=== PATIENT | female | born 1985 | race American Indian/Alaskan Native ===

== ENCOUNTER 2017-11-26 22:16 | Inpatient (IN) | payer OTHER, MEDICAID ==
[2017-11-26] MEDS ORDERED: LACTATED RINGERS 500 ML IV ONE (22:57)
--- NOTE | 2017-11-26 23:36 | History and Physical Report ---
History of Present Illness Date of examination: 11/26/17 (as per triage nurse) Date of admission: 11/26/17 Chief complaint: leaking fluid History of present illness: Pt presents c/o leakage of fluid that has been constant all evening. Fluid has been clear and no odor. No fevers and no chills. Pt as evaluated in triage and noted to have +nitrazine and appears to be grossly SROM by diamond powder technician. Pt admitted but was made aware that the NICU is on diversion at this time that should lift by the am but if it does not and she needs delivery or delivers the baby would be transferred to another hospital for care while she would remain in this hospital for care. Pt expresssed understanding. Pt also advised of steroids, NICU consult, MgSo4 that is to follow. I expressed to pt that if she shows progression of labor, s/sx of chorio, or distress, she will need delivery.Pt and FOB expressed understanding and several questions were addressed and answered. Pt does not c/o increasing pressure at this time so repeat vaginal exam not done to decrease risk of infection. Sono shows OLAYINKA of 1.9cm, CL 3.2cm, and EFW 741g. EDC Confirmation: 03/10/2018 Gestational Age: 8 1/7 weeks Past History : 4 Term Births: 2 Premature Births: 0 Living Children: 2 Para: 2 Mult. Births: 0 Prev : 2 Prev. attempt? none Aborta: 1 Elect. Ab: 1 Spont. Ab: 0 Ectopics: 0 # 1 Delivery date: 12/2006 Delivery type: Anesthesia type: epidural Delivery location: [facility] Infant Sex: Female weight: 7-14 Comments: CPD # 2 Delivery date: 2011 Delivery type: EAB # 3 Delivery date: 03/18/2013 Weeks Gestation: 38 4/7 Delivery type: Anesthesia type: epidural Delivery location: [facility] Infant Sex: female Comments: none Past Medical History: Reviewed history from 04/11/2010 and no changes required: Negative Past Medical History Past Surgical History: D&C: (2006) (2013) Family History Summary: Reviewed history Last on 08/16/2012 and no changes required:08/08/2017 General Comments - FH: Family History of Diabetes Family History of Hypertension No Family History of Breast Cancer No Family History of Colon Cancer No Family History of Ovarvian Cancer Social History: 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 Risk Factors: Smoked Tobacco Use: Current every day smoker Counseled to quit/cut down: yes Drug use: no Alcohol use: yes Type: liqour; occ Seatbelt use: 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-counselor aide % Dietary Counseling: pn yes Past Medical History Surgery (Non-ob/gyn doctor): D&C: (2006) (2013) Abnormal PAP: positive DAISY Exposure: negative Infertility: negative Uterine Anomaly: negative Uterine Surgery (not C/S): negative Other Gynecologic Problems: negative Social Hx: 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 Genetic History Congenital Heart Defect: Mom: no Dad: no Sarah Disease: Mom: no Dad: no Thalassemia Mom: no Dad: no Neural Tube Defect Mom: no Dad: no Down's Syndrome Mom: no Dad: no Eliseo-Sachs Mom: no Dad: no Sickle Cell Disease/Trait Mom: no Dad: no Hemophilia Mom: no Dad: no Muscular Dystrophy Mom: no Dad: no Cystic Fibrosis Mom: no Dad: no Crawford Chorea Mom: no Dad: no Mental Retardation Mom: no Dad: no Fragile X Mom: no Dad: no Other Genetic/Chromosomal Disorder Mom: no Dad: no Child w/other defect Mom: no Dad: no Enviromental Exposures Xray Exposure: no Medication, drug, or alcohol use since LMP: no Chemical/Other Exposure: no Exposure to Cat Liter: no Hx of Parvovirus (Fifth Disease): no Active Medications (reviewed today): FORMULA 27-1 MG ORAL TABLET ( VIT-FE FUMARATE-FA) 1 po q day as directed DIFLUCAN 150 MG ORAL TABLET (FLUCONAZOLE) 1 po now VALTREX 500 MG ORAL TABLET (VALACYCLOVIR HCL) 1 tab po bid x3days as needed IB 800MG () Current Allergies (reviewed today): No known allergies Past History Past Medical History: no pertinent history Past Surgical History: section (times 2) [employer]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 smear Family/Genetic History: diabetes - Obstetrical History Expected Date of Delivery: 03/10/18 Actual Gestation: 25 Week(s) 2 Day(s) : 3 Para: 2 Number of Living Children: 2 Medications and Allergies Allergies Allergy/AdvReac Type Severity Reaction Status Date / Time No Known Allergies Allergy Verified 03/18/13 12:35 Home Medications Medication Instructions Recorded Confirmed Last Taken Type Docusate Sodium [Colace] 100 mg PO BID PRN #60 capsule 03/18/13 11/26/17 11:00 Rx Ferrous Sulfate [Iron] 1 tab PO DAILY 11/26/17 11/26/17 11/25/17 11:00 History Pnv No.95/Ferrous Fum/Folic AC 1 tab PO DAILY 11/26/17 11/26/17 11/25/17 11:00 History [ Formula Tablet] Review of Systems All systems: negative - Vital Signs Vital signs: Vital Signs Pulse Pulse Ox 93 H 98 11/26/17 22:48 11/26/17 22:48 Temp Pulse Resp BP Pulse Ox 98.2 F 92 H 18 107/55 97 11/26/17 22:49 11/26/17 22:58 11/26/17 22:49 11/26/17 22:49 11/26/17 22:58 Results All other labs normal. Assessment and Plan - Patient Problems (1) 25 weeks gestation of Current Visit: Yes Status: Acute (2) premature rupture of membranes Current Visit: Yes Status: Acute Plan to address problem: -admit -complete sono -MgSo4 -NICU consult -antbx to prolong latency (3) Anemia Current Visit: Yes Status: Acute (4) History of delivery, currently Current Visit: No Status: Acute
[2017-11-26] MEDS ORDERED: TYLENOL PO PRN (23:42)
[2017-11-26] MEDS ORDERED: COLACE PO PRN (23:42)
[2017-11-26] MEDS ORDERED: LACTATED RINGERS 1,000 ML IV SCH (23:45)
[2017-11-26] MEDS ORDERED: MAGNESIUM SULFATE 4GM/100ML 4 GM/100 ML BAG IV ONE (23:59)
[2017-11-27] MEDS ORDERED: CELESTONE SOLUSPAN IM ONE (00:12)
[2017-11-27] MEDS: CELESTONE SOLUSPAN IM SCH (00:25)
[2017-11-27 00:34] LABS: Bilirubin,Urine NEG (Negative); Blood,Urine SM (Negative); Color,Urine Yellow (Yellow); Mucus,Urine 1+ /HPF; Urobilinogen,Urine < 2.0 mg/dL (<2.0)
--- NOTE | 2017-11-27 00:40 | Event Note ---
Date: 11/27/17 Pt is s/p 1st dose of steroids and is awaiting magnesium to start.
--- NOTE | 2017-11-27 00:41 | Ultrasound Report ---
FINAL REPORT PROCEDURE: US OB > = 14 WEEKS FETUS TECHNIQUE: Real-time transabdominal sonography of the uterus, placenta, amniotic fluid, adnexa, and fetus was performed with image documentation. Measurements were obtained to determine age/size. M-mode Doppler was used to document heartbeat. CPT 23125 HISTORY: premature rupture of membranes COMPARISON: No prior studies are available for comparison. FINDINGS: ADDITIONAL GESTATION: None. GENERAL: IUP: Single living intrauterine . Position: Breech Placental position: Posterior and fundal, without previa. Amniotic fluid volume: Normal. MATERNAL: Uterus: Within normal limits. Cervix could not be visualized. FETUS: Heart rate and rhythm: 144 beats per minute anatomic survey: Normal. MEASUREMENTS: BPD: 5.83 centimeters correspond to 23 weeks and 6 days HC: 23.83 centimeters correspond to 25 weeks and 6 days AC: 19.5 centimeters correspond to 24 weeks and 1 day FL: 4.67 centimeters correspond to 25 weeks and 4 days Mean Gestational Age (composite criteria): 24 weeks and 6 days Ratio biometry: Normal. Estimated Weight: 741 grams. Interval growth: Appropriate. Estimated Due Date (earliest scan): 03/12/2018 IMPRESSION: Single intrauterine gestation at 24 weeks and 6 days. Estimated due date: 03/12/2018. Normal survey with appropriate growth.
[2017-11-27] MEDS: MAGNESIUM SULFATE 40GM/1000ML 40 GM/1,000 ML BAG IV SCH ×2 (00:58→20:03)
[2017-11-27 01:06] LABS: Basophils # (Auto) 0.2 K/mm3 (0.0-0.1); Basophils % (Auto) 1.3 % (0.0-1.8); Eosinophils # (Auto) 0.1 K/mm3 (0.0-0.4); Hematocrit 34.1 % (30.3-42.9); Hemoglobin 11.4 gm/dl (10.1-14.3); Lymphocytes # (Auto) 3.4 K/mm3 (1.2-5.4); Lymphocytes % (Auto) 22.1 % (13.4-35.0); Mean Corpuscular HGB Conc 33 % (30-34); Mean Corpuscular Hemoglobin 28 pg (28-32); Mean Corpuscular Volume 84 fl (79-97); Monocytes # (Auto) 1.2 K/mm3 (0.0-0.8); Monocytes % (Auto) 7.9 % (0.0-7.3); Platelet Count 269 K/mm3 (140-440); Red Blood Count 4.06 M/mm3 (3.65-5.03); Red Cell Distribution Width 13.7 % (13.2-15.2)
[2017-11-27] MEDS: ERY-TAB PO SCH ×4 (01:11→19:07)
[2017-11-27] MEDS ORDERED: POLYCILLIN/NS 2 GM/100 ML 2 GM/100 ML BAG IV ONE (01:12)
[2017-11-27 01:46] LABS: Albumin 3.6 g/dL (3.9-5); BUN/Creatinine Ratio 16; Blood Urea Nitrogen 8 mg/dL (7-17); Hemolysis Index 127
[2017-11-27 01:54] LABS: Alanine Aminotransferase 12 units/L (7-56)
[2017-11-27] MEDS: LACTATED RINGERS 1,000 ML IV SCH ×2 (02:47→19:15)
--- NOTE | 2017-11-27 07:31 | Progress Note ---
Assessment and Plan Patient resting without complaints, denies ctx or rectal pressure. Clear odorless fluid noted on pad, no abd tenderness noted, no fever. Patient reports feeling FM - tracing CAT 1. Plan to continue with plan of care, second dose of BMZ due @ MN. All questions addressed, patient verbalized understanding. Will allow clear liquid diet at this time. Order in EMR. Dr. Durán consulted. [facility] consult ordered - they were notified by Shakir Tan. - Patient Problems (1) 25 weeks gestation of Current Visit: Yes Status: Acute (2) premature rupture of membranes Onset Date: 11/26/17 Current Visit: Yes Status: Acute Qualifiers: PROM onset of labor timing: unspecified duration between rupture of membranes and onset of labor Qualified Code(s): O42.919 - premature rupture of membranes, unspecified as to length of time between rupture and onset of labor, unspecified trimester (3) History of delivery, currently Current Visit: No Status: Acute Subjective - Subjective Date of service: 11/27/17 Principal diagnosis: IUP @ 25+5, PPROM Patient reports: loss of fluid, movement normal, no new complaints, no vaginal bleeding, no contractions Objective - Vital Signs Vital Signs: Vital Signs - 12hr 11/26/17 11/26/17 11/26/17 22:48 22:49 22:53 Temperature 98.2 F Pulse Rate 93 H 100 H 94 H Respiratory 18 Rate Blood Pressure 107/55 Blood Pressure 107/55 [Left] O2 Sat by Pulse 98 98 98 Oximetry 11/26/17 11/27/17 11/27/17 22:58 00:37 00:46 Temperature 98.8 F Pulse Rate 92 H 97 H 81 Respiratory 18 Rate Blood Pressure Blood Pressure 116/58 [Left] O2 Sat by Pulse 97 100 Oximetry 11/27/17 11/27/17 11/27/17 00:47 00:51 00:56 Temperature Pulse Rate 81 84 75 Respiratory Rate Blood Pressure 113/66 Blood Pressure [Left] O2 Sat by Pulse 99 100 Oximetry 11/27/17 11/27/17 11/27/17 01:04 01:09 01:14 Temperature Pulse Rate 99 H 97 H 98 H Respiratory Rate Blood Pressure 121/66 125/79 Blood Pressure [Left] O2 Sat by Pulse 97 98 Oximetry 11/27/17 11/27/17 11/27/17 01:24 01:34 01:44 Temperature Pulse Rate 95 H 98 H 100 H Respiratory Rate Blood Pressure 127/67 126/65 118/61 Blood Pressure [Left] O2 Sat by Pulse Oximetry 11/27/17 11/27/17 11/27/17 01:54 02:04 02:14 Temperature Pulse Rate 97 H 101 H 100 H Respiratory Rate Blood Pressure 113/58 109/65 110/55 Blood Pressure [Left] O2 Sat by Pulse Oximetry 11/27/17 11/27/17 11/27/17 02:24 02:34 02:54 Temperature Pulse Rate 97 H 101 H 102 H Respiratory Rate Blood Pressure 110/60 117/59 105/55 Blood Pressure [Left] O2 Sat by Pulse Oximetry 11/27/17 11/27/17 11/27/17 03:05 03:09 03:14 Temperature Pulse Rate 100 H 96 H 98 H Respiratory Rate Blood Pressure 114/56 Blood Pressure [Left] O2 Sat by Pulse 96 95 Oximetry 11/27/17 11/27/17 11/27/17 03:15 03:19 03:20 Temperature Pulse Rate 98 H 103 H 102 H Respiratory Rate Blood Pressure 115/57 Blood Pressure [Left] O2 Sat by Pulse 94 95 94 Oximetry 11/27/17 11/27/17 11/27/17 03:24 03:29 03:34 Temperature Pulse Rate 98 H 98 H 98 H Respiratory Rate Blood Pressure 104/50 105/54 Blood Pressure [Left] O2 Sat by Pulse 96 96 96 Oximetry 11/27/17 11/27/17 11/27/17 03:39 03:44 03:49 Temperature Pulse Rate 99 H 99 H 98 H Respiratory Rate Blood Pressure 121/57 Blood Pressure [Left] O2 Sat by Pulse 95 96 95 Oximetry 11/27/17 11/27/17 11/27/17 03:54 03:59 04:04 Temperature Pulse Rate 104 H 94 H 100 H Respiratory Rate Blood Pressure 119/60 118/57 Blood Pressure [Left] O2 Sat by Pulse 96 95 96 Oximetry 11/27/17 11/27/17 11/27/17 04:09 04:14 04:19 Temperature Pulse Rate 94 H 100 H 98 H Respiratory Rate Blood Pressure 125/59 Blood Pressure [Left] O2 Sat by Pulse 95 96 95 Oximetry 11/27/17 11/27/17 11/27/17 04:24 04:25 04:29 Temperature 98.0 F Pulse Rate 103 H 97 H 101 H Respiratory 18 Rate Blood Pressure 120/55 Blood Pressure 120/55 [Left] O2 Sat by Pulse 96 97 Oximetry 11/27/17 11/27/17 11/27/17 04:34 04:35 04:44 Temperature Pulse Rate 101 H 99 H 100 H Respiratory Rate Blood Pressure 127/63 115/57 Blood Pressure [Left] O2 Sat by Pulse 96 Oximetry 11/27/17 11/27/17 11/27/17 04:54 05:04 05:08 Temperature Pulse Rate 97 H 98 H 102 H Respiratory Rate Blood Pressure 118/62 120/61 Blood Pressure [Left] O2 Sat by Pulse 97 Oximetry 11/27/17 11/27/17 11/27/17 05:13 05:14 05:18 Temperature Pulse Rate 98 H 99 H 99 H Respiratory Rate Blood Pressure 111/57 Blood Pressure [Left] O2 Sat by Pulse 96 97 Oximetry 11/27/17 11/27/17 11/27/17 05:24 05:34 05:44 Temperature Pulse Rate 101 H 94 H 97 H Respiratory Rate Blood Pressure 114/59 116/59 112/58 Blood Pressure [Left] O2 Sat by Pulse Oximetry 11/27/17 11/27/17 11/27/17 05:54 06:04 06:14 Temperature Pulse Rate 95 H 97 H 93 H Respiratory Rate Blood Pressure 120/58 113/56 118/58 Blood Pressure [Left] O2 Sat by Pulse Oximetry 11/27/17 11/27/17 11/27/17 06:18 06:24 06:35 Temperature 98.4 F Pulse Rate 97 H 99 H 106 H Respiratory 19 Rate Blood Pressure 121/62 119/60 Blood Pressure 113/56 [Left] O2 Sat by Pulse Oximetry 11/27/17 11/27/17 11/27/17 06:44 06:54 07:04 Temperature Pulse Rate 100 H 96 H 100 H Respiratory Rate Blood Pressure 114/61 114/58 118/64 Blood Pressure [Left] O2 Sat by Pulse Oximetry 11/27/17 11/27/17 07:14 07:24 Temperature Pulse Rate 91 H 96 H Respiratory Rate Blood Pressure 104/56 109/65 Blood Pressure [Left] O2 Sat by Pulse Oximetry - Exam Breasts: normal Cardiovascular: Regular rate Lungs: Clear to auscultation, Normal air movement Abdomen: Present: normal appearance, soft Vulva: both: normal Uterus: Present: normal, fundal height above umbilicus FHR: auscultation normal, category 1 Uterine Contraction Monitor Mode: External Uterine Contraction Pattern: Absent Uterine Tone Measurement Phase: Resting Extremities: normal Deep Tendon Reflex Grade: Normal +2 - Labs Labs: Abnormal Labs 11/26/17 11/26/17 11/26/17 23:38 23:38 23:38 WBC 15.4 H [place] % (Auto) 7.9 H [place] # 1.2 H Baso # 0.2 H Seg Neutrophils # 10.4 H Carbon Dioxide 20 L Creatinine 0.5 L Albumin 3.6 L Urine WBC (Auto) 121.0 H Laboratory Results - last 24 hr 11/26/17 11/26/17 11/26/17 00:40 23:38 23:38 WBC 15.4 H RBC 4.06 Hgb 11.4 Hct 34.1 MCV 84 MCH 28 MCHC 33 RDW 13.7 Plt Count 269 Lymph % (Auto) 22.1 [place] % (Auto) 7.9 H Eos % (Auto) 1.0 Baso % (Auto) 1.3 Lymph # 3.4 [place] # 1.2 H Eos # 0.1 Baso # 0.2 H Seg Neutrophils % 67.7 Seg Neutrophils # 10.4 H Sodium Potassium Chloride Carbon Dioxide Anion Gap BUN Creatinine Estimated GFR BUN/Creatinine Ratio Glucose Calcium Total Bilirubin AST ALT Alkaline Phosphatase Total Protein Albumin Albumin/Globulin Ratio Urine Color Yellow Urine Turbidity Cloudy Urine pH 5.0 Ur Specific [place] 1.019 Urine Protein 100 mg/dl Urine Glucose (UA) Neg Urine Ketones Tr Urine Blood Sm Urine Nitrite Neg Urine Bilirubin Neg Urine Urobilinogen < 2.0 Ur Leukocyte Esterase Lg Urine WBC (Auto) 121.0 H Urine RBC (Auto) 10.0 U Epithel Cells (Auto) 12.0 Urine Mucus 1+ Blood Type O POSITIVE Antibody Screen Negative 11/26/17 23:38 WBC RBC Hgb Hct MCV MCH MCHC RDW Plt Count Lymph % (Auto) [place] % (Auto) Eos % (Auto) Baso % (Auto) Lymph # [place] # Eos # Baso # Seg Neutrophils % Seg Neutrophils # Sodium 137 Potassium 4.8 Chloride 102.3 Carbon Dioxide 20 L Anion Gap 20 BUN 8 Creatinine 0.5 L Estimated GFR > 60 BUN/Creatinine Ratio 16 Glucose 91 Calcium 9.0 Total Bilirubin 0.20 AST 31 ALT 12 Alkaline Phosphatase 109 Total Protein 7.0 Albumin 3.6 L Albumin/Globulin Ratio 1.1 Urine Color Urine Turbidity Urine pH Ur Specific [place] Urine Protein Urine Glucose (UA) Urine Ketones Urine Blood Urine Nitrite Urine Bilirubin Urine Urobilinogen Ur Leukocyte Esterase Urine WBC (Auto) Urine RBC (Auto) U Epithel Cells (Auto) Urine Mucus Blood Type Antibody Screen
[2017-11-27] MEDS: POLYCILLIN/NS 2 GM/100 ML 2 GM/100 ML BAG IV SCH ×3 (07:33→19:55)
[2017-11-27] MEDS: PRENATAL VITAMIN PO SCH (10:35)
--- NOTE | 2017-11-27 11:44 | Progress Note ---
Assessment and Plan Plan of care explained, questions answered. Continue tocolysis, complete steroids, observe closely for s/s chorioamnionitis and labor progression She declines BTL at this time. - Patient Problems (1) 25 weeks gestation of Current Visit: Yes Status: Acute (2) premature rupture of membranes Onset Date: 11/26/17 Current Visit: Yes Status: Acute Qualifiers: PROM onset of labor timing: unspecified duration between rupture of membranes and onset of labor Qualified Code(s): O42.919 - premature rupture of membranes, unspecified as to length of time between rupture and onset of labor, unspecified trimester Plan to address problem: No s/s infection (3) labor in second trimester Current Visit: Yes Status: Acute (4) Anemia Current Visit: Yes Status: Acute (5) delivery delivered Current Visit: No Status: Acute Subjective - Subjective Date of service: 11/27/17 Principal diagnosis: IUP @ 25+5, PPROM Interval history: no complaints, denies contraction or bleeding Patient reports: loss of fluid, movement normal, no new complaints, no vaginal bleeding, no contractions Objective - Vital Signs Vital Signs: Vital Signs - 12hr 11/27/17 11/27/17 11/27/17 00:37 00:46 00:47 Temperature 98.8 F Pulse Rate 97 H 81 81 Respiratory 18 Rate Blood Pressure 113/66 Blood Pressure 116/58 [Left] Blood Pressure [Right] O2 Sat by Pulse 100 Oximetry 11/27/17 11/27/17 11/27/17 00:51 00:56 01:04 Temperature Pulse Rate 84 75 99 H Respiratory Rate Blood Pressure 121/66 Blood Pressure [Left] Blood Pressure [Right] O2 Sat by Pulse 99 100 97 Oximetry 11/27/17 11/27/17 11/27/17 01:09 01:14 01:24 Temperature Pulse Rate 97 H 98 H 95 H Respiratory Rate Blood Pressure 125/79 127/67 Blood Pressure [Left] Blood Pressure [Right] O2 Sat by Pulse 98 Oximetry 11/27/17 11/27/17 11/27/17 01:34 01:44 01:54 Temperature Pulse Rate 98 H 100 H 97 H Respiratory Rate Blood Pressure 126/65 118/61 113/58 Blood Pressure [Left] Blood Pressure [Right] O2 Sat by Pulse Oximetry 11/27/17 11/27/17 11/27/17 02:04 02:14 02:24 Temperature Pulse Rate 101 H 100 H 97 H Respiratory Rate Blood Pressure 109/65 110/55 110/60 Blood Pressure [Left] Blood Pressure [Right] O2 Sat by Pulse Oximetry 11/27/17 11/27/17 11/27/17 02:34 02:54 03:05 Temperature Pulse Rate 101 H 102 H 100 H Respiratory Rate Blood Pressure 117/59 105/55 114/56 Blood Pressure [Left] Blood Pressure [Right] O2 Sat by Pulse Oximetry 11/27/17 11/27/17 11/27/17 03:09 03:14 03:15 Temperature Pulse Rate 96 H 98 H 98 H Respiratory Rate Blood Pressure 115/57 Blood Pressure [Left] Blood Pressure [Right] O2 Sat by Pulse 96 95 94 Oximetry 11/27/17 11/27/17 11/27/17 03:19 03:20 03:24 Temperature Pulse Rate 103 H 102 H 98 H Respiratory Rate Blood Pressure 104/50 Blood Pressure [Left] Blood Pressure [Right] O2 Sat by Pulse 95 94 96 Oximetry 11/27/17 11/27/17 11/27/17 03:29 03:34 03:39 Temperature Pulse Rate 98 H 98 H 99 H Respiratory Rate Blood Pressure 105/54 Blood Pressure [Left] Blood Pressure [Right] O2 Sat by Pulse 96 96 95 Oximetry 11/27/17 11/27/17 11/27/17 03:44 03:49 03:54 Temperature Pulse Rate 99 H 98 H 104 H Respiratory Rate Blood Pressure 121/57 119/60 Blood Pressure [Left] Blood Pressure [Right] O2 Sat by Pulse 96 95 96 Oximetry 11/27/17 11/27/17 11/27/17 03:59 04:04 04:09 Temperature Pulse Rate 94 H 100 H 94 H Respiratory Rate Blood Pressure 118/57 Blood Pressure [Left] Blood Pressure [Right] O2 Sat by Pulse 95 96 95 Oximetry 11/27/17 11/27/17 11/27/17 04:14 04:19 04:24 Temperature Pulse Rate 100 H 98 H 103 H Respiratory Rate Blood Pressure 125/59 120/55 Blood Pressure [Left] Blood Pressure [Right] O2 Sat by Pulse 96 95 96 Oximetry 11/27/17 11/27/17 11/27/17 04:25 04:29 04:34 Temperature 98.0 F Pulse Rate 97 H 101 H 101 H Respiratory 18 Rate Blood Pressure Blood Pressure 120/55 [Left] Blood Pressure [Right] O2 Sat by Pulse 97 96 Oximetry 11/27/17 11/27/17 11/27/17 04:35 04:44 04:54 Temperature Pulse Rate 99 H 100 H 97 H Respiratory Rate Blood Pressure 127/63 115/57 118/62 Blood Pressure [Left] Blood Pressure [Right] O2 Sat by Pulse Oximetry 11/27/17 11/27/17 11/27/17 05:04 05:08 05:13 Temperature Pulse Rate 98 H 102 H 98 H Respiratory Rate Blood Pressure 120/61 Blood Pressure [Left] Blood Pressure [Right] O2 Sat by Pulse 97 96 Oximetry 11/27/17 11/27/17 11/27/17 05:14 05:18 05:24 Temperature Pulse Rate 99 H 99 H 101 H Respiratory Rate Blood Pressure 111/57 114/59 Blood Pressure [Left] Blood Pressure [Right] O2 Sat by Pulse 97 Oximetry 11/27/17 11/27/17 11/27/17 05:34 05:44 05:54 Temperature Pulse Rate 94 H 97 H 95 H Respiratory Rate Blood Pressure 116/59 112/58 120/58 Blood Pressure [Left] Blood Pressure [Right] O2 Sat by Pulse Oximetry 11/27/17 11/27/17 11/27/17 06:04 06:14 06:18 Temperature 98.4 F Pulse Rate 97 H 93 H 97 H Respiratory 19 Rate Blood Pressure 113/56 118/58 Blood Pressure 113/56 [Left] Blood Pressure [Right] O2 Sat by Pulse Oximetry 11/27/17 11/27/17 11/27/17 06:24 06:35 06:44 Temperature Pulse Rate 99 H 106 H 100 H Respiratory Rate Blood Pressure 121/62 119/60 114/61 Blood Pressure [Left] Blood Pressure [Right] O2 Sat by Pulse Oximetry 11/27/17 11/27/17 11/27/17 06:54 07:04 07:14 Temperature Pulse Rate 96 H 100 H 91 H Respiratory Rate Blood Pressure 114/58 118/64 104/56 Blood Pressure [Left] Blood Pressure [Right] O2 Sat by Pulse Oximetry 11/27/17 11/27/17 11/27/17 07:24 07:34 07:44 Temperature Pulse Rate 96 H 96 H 100 H Respiratory Rate Blood Pressure 109/65 111/53 104/55 Blood Pressure [Left] Blood Pressure [Right] O2 Sat by Pulse Oximetry 11/27/17 11/27/17 11/27/17 07:54 07:59 08:29 Temperature 97.5 F L Pulse Rate 91 H 90 93 H Respiratory 18 Rate Blood Pressure 85/50 103/58 96/55 Blood Pressure [Left] Blood Pressure 103/58 [Right] O2 Sat by Pulse Oximetry 11/27/17 11/27/17 09:00 09:29 Temperature Pulse Rate 85 86 Respiratory Rate Blood Pressure 79/50 91/55 Blood Pressure [Left] Blood Pressure [Right] O2 Sat by Pulse Oximetry - Exam Breasts: deferred Lungs: Normal air movement FHR: category 1 Uterine Contraction Monitor Mode: External - Labs Labs: Abnormal Labs 11/26/17 11/26/17 11/26/17 23:38 23:38 23:38 WBC 15.4 H [place] % (Auto) 7.9 H [place] # 1.2 H Baso # 0.2 H Seg Neutrophils # 10.4 H Carbon Dioxide 20 L Creatinine 0.5 L Albumin 3.6 L Urine WBC (Auto) 121.0 H Laboratory Results - last 24 hr 11/26/17 11/26/17 11/26/17 00:40 23:38 23:38 WBC 15.4 H RBC 4.06 Hgb 11.4 Hct 34.1 MCV 84 MCH 28 MCHC 33 RDW 13.7 Plt Count 269 Lymph % (Auto) 22.1 [place] % (Auto) 7.9 H Eos % (Auto) 1.0 Baso % (Auto) 1.3 Lymph # 3.4 [place] # 1.2 H Eos # 0.1 Baso # 0.2 H Seg Neutrophils % 67.7 Seg Neutrophils # 10.4 H Sodium Potassium Chloride Carbon Dioxide Anion Gap BUN Creatinine Estimated GFR BUN/Creatinine Ratio Glucose Calcium Total Bilirubin AST ALT Alkaline Phosphatase Total Protein Albumin Albumin/Globulin Ratio Urine Color Yellow Urine Turbidity Cloudy Urine pH 5.0 Ur Specific [place] 1.019 Urine Protein 100 mg/dl Urine Glucose (UA) Neg Urine Ketones Tr Urine Blood Sm Urine Nitrite Neg Urine Bilirubin Neg Urine Urobilinogen < 2.0 Ur Leukocyte Esterase Lg Urine WBC (Auto) 121.0 H Urine RBC (Auto) 10.0 U Epithel Cells (Auto) 12.0 Urine Mucus 1+ Blood Type O POSITIVE Antibody Screen Negative 11/26/17 23:38 WBC RBC Hgb Hct MCV MCH MCHC RDW Plt Count Lymph % (Auto) [place] % (Auto) Eos % (Auto) Baso % (Auto) Lymph # [place] # Eos # Baso # Seg Neutrophils % Seg Neutrophils # Sodium 137 Potassium 4.8 Chloride 102.3 Carbon Dioxide 20 L Anion Gap 20 BUN 8 Creatinine 0.5 L Estimated GFR > 60 BUN/Creatinine Ratio 16 Glucose 91 Calcium 9.0 Total Bilirubin 0.20 AST 31 ALT 12 Alkaline Phosphatase 109 Total Protein 7.0 Albumin 3.6 L Albumin/Globulin Ratio 1.1 Urine Color Urine Turbidity Urine pH Ur Specific [place] Urine Protein Urine Glucose (UA) Urine Ketones Urine Blood Urine Nitrite Urine Bilirubin Urine Urobilinogen Ur Leukocyte Esterase Urine WBC (Auto) Urine RBC (Auto) U Epithel Cells (Auto) Urine Mucus Blood Type Antibody Screen
--- NOTE | 2017-11-27 12:20 | Consultation ---
Past History Past Medical History: no pertinent history Past Surgical History: section (times 2) [employer] History: abnormal PAP smear Family/Genetic History: diabetes - Obstetrical History : 3 Medications and Allergies Allergies Allergy/AdvReac Type Severity Reaction Status Date / Time No Known Allergies Allergy Verified 03/18/13 12:35 Home Medications Medication Instructions Recorded Confirmed Last Taken Type Docusate Sodium [Colace] 100 mg PO BID PRN #60 capsule 03/18/13 11/26/17 11:00 Rx Ferrous Sulfate [Iron] 1 tab PO DAILY 11/26/17 11/26/17 11/25/17 11:00 History Pnv No.95/Ferrous Fum/Folic AC 1 tab PO DAILY 11/26/17 11/26/17 11/25/17 11:00 History [ Formula Tablet] Active Meds: Active Medications Acetaminophen (Tylenol) 650 mg PO Q4H PRN PRN Reason: Pain MILD(1-3)/Fever >100.5/PARIKH Betamethasone Acet/Betameth SodPhos (Celestone Soluspan) 12 mg IM Q24H MYLES Stop: 11/28/17 00:16 Last Admin: 11/27/17 00:25 Dose: 12 mg Docusate Sodium (Colace) 100 mg PO Q12H PRN PRN Reason: Constipation Erythromycin (Myke-Tab) 250 mg PO Q6HR [facility] Last Admin: 11/27/17 12:06 Dose: 250 mg Magnesium Sulfate (Magnesium Sulfate 40gm/1000ml) 40 gm in 1,000 mls @ 50 mls/ hr IV DIRECT MYLES Last Admin: 11/27/17 00:58 Dose: 2 gm/hr, 50 mls/hr Lactated Ringer's (Lactated Ringers) 1,000 mls @ 75 mls/hr IV DIRECT MYLES Last Admin: 11/27/17 02:47 Dose: 75 mls/hr Ampicillin Sodium (Polycillin/Ns 2 Gm/100 Ml) 2 gm in 100 mls @ 100 mls/hr IV Q6H [facility]; Protocol Last Admin: 11/27/17 07:33 Dose: 100 mls/hr Multivitamins/Iron/Calcium ( Vitamin) 1 each PO QDAY MYLES Last Admin: 11/27/17 10:35 Dose: 1 each - Vital Signs Vital signs: Vital Signs Pulse Pulse Ox 93 H 98 10/01/18 22:48 11/26/17 22:48 Temp Pulse Resp BP Pulse Ox 97.8 F 83 18 102/61 97 11/27/17 12:04 11/27/17 12:04 11/27/17 12:04 11/27/17 12:04 11/27/17 05:18 Results Result Diagrams: 11/26/17 23:38 11/26/17 23:38 Abnormal lab results 11/26/17 11/26/17 11/26/17 Range/Units 23:38 23:38 23:38 WBC 15.4 H (4.5-11.0) K/mm3 [place] % (Auto) 7.9 H (0.0-7.3) % [place] # 1.2 H (0.0-0.8) K/mm3 Baso # 0.2 H (0.0-0.1) K/mm3 Seg Neutrophils # 10.4 H (1.8-7.7) K/mm3 Carbon Dioxide 20 L (22-30) mmol/L Creatinine 0.5 L (0.7-1.2) mg/dL Albumin 3.6 L (3.9-5) g/dL Urine WBC (Auto) 121.0 H (0.0-6.0) /HPF All other labs normal. Assessment and Plan [facility] Full consult to follow
--- NOTE | 2017-11-27 17:40 | Consultation ---
History of Present Illness Consult date: 11/27/17 Reason for consult: prematurity (Premature rupture of membranes at 25 weeks) History of present illness: Met with mother and discussed the following: Expected NICU course Possible need for intubation, surfactant and mechanical ventilation Need for umbilical lines HUS for diagnosing and monitoring for IVH Need for parenteral nutrition and importance of breast milk Mother demonstrated understanding of information provided and asked appropriate questions and I encouraged her to call the NICU with questions [id number] Documentation - Maternal Info Amniotic Membrane Rupture Date: 11/26/17 Amniotic Membrane Rupture Time: 19:00 - information: Height 5 ft 1 in Medications and Allergies Allergies Allergy/AdvReac Type Severity Reaction Status Date / Time No Known Allergies Allergy Verified 03/18/13 12:35 Home Medications Medication Instructions Recorded Confirmed Last Taken Type Docusate Sodium [Colace] 100 mg PO BID PRN #60 capsule 03/18/13 11/26/17 11:00 Rx Ferrous Sulfate [Iron] 1 tab PO DAILY 11/26/17 11/26/17 11/25/17 11:00 History Pnv No.95/Ferrous Fum/Folic AC 1 tab PO DAILY 11/26/17 11/26/17 11/25/17 11:00 History [ Formula Tablet] Active Meds: Active Medications Acetaminophen (Tylenol) 650 mg PO Q4H PRN PRN Reason: Pain MILD(1-3)/Fever >100.5/PARIKH Betamethasone Acet/Betameth SodPhos (Celestone Soluspan) 12 mg IM Q24H MYLES Stop: 11/28/17 00:16 Last Admin: 11/27/17 00:25 Dose: 12 mg Docusate Sodium (Colace) 100 mg PO Q12H PRN PRN Reason: Constipation Erythromycin (Myke-Tab) 250 mg PO Q6HR [facility] Last Admin: 11/27/17 12:06 Dose: 250 mg Magnesium Sulfate (Magnesium Sulfate 40gm/1000ml) 40 gm in 1,000 mls @ 50 mls/ hr IV DIRECT MYLES Last Admin: 11/27/17 00:58 Dose: 2 gm/hr, 50 mls/hr Lactated Ringer's (Lactated Ringers) 1,000 mls @ 75 mls/hr IV DIRECT MYLES Last Admin: 11/27/17 02:47 Dose: 75 mls/hr Ampicillin Sodium (Polycillin/Ns 2 Gm/100 Ml) 2 gm in 100 mls @ 100 mls/hr IV Q6H [facility]; Protocol Last Admin: 11/27/17 14:09 Dose: 100 mls/hr Multivitamins/Iron/Calcium ( Vitamin) 1 each PO QDAY MYLES Last Admin: 11/27/17 10:35 Dose: 1 each Exam Vital Signs Pulse Pulse Ox 93 H 98 11/26/17 22:48 11/26/17 22:48 Temp Pulse Resp BP Pulse Ox 97.8 F 83 18 102/61 97 11/27/17 12:04 11/27/17 12:04 11/27/17 12:04 11/27/17 12:04 11/27/17 05:18 Results - Laboratory Findings 11/26/17 23:38 11/26/17 23:38 Abnormal lab results 11/26/17 11/26/17 11/26/17 Range/Units 23:38 23:38 23:38 WBC 15.4 H (4.5-11.0) K/mm3 [place] % (Auto) 7.9 H (0.0-7.3) % [place] # 1.2 H (0.0-0.8) K/mm3 Baso # 0.2 H (0.0-0.1) K/mm3 Seg Neutrophils # 10.4 H (1.8-7.7) K/mm3 Carbon Dioxide 20 L (22-30) mmol/L Creatinine 0.5 L (0.7-1.2) mg/dL Magnesium (1.7-2.3) mg/dL Albumin 3.6 L (3.9-5) g/dL Urine WBC (Auto) 121.0 H (0.0-6.0) /HPF 11/27/17 Range/Units 14:06 WBC (4.5-11.0) K/mm3 [place] % (Auto) (0.0-7.3) % [place] # (0.0-0.8) K/mm3 Baso # (0.0-0.1) K/mm3 Seg Neutrophils # (1.8-7.7) K/mm3 Carbon Dioxide (22-30) mmol/L Creatinine (0.7-1.2) mg/dL Magnesium 5.50 H (1.7-2.3) mg/dL Albumin (3.9-5) g/dL Urine WBC (Auto) (0.0-6.0) /HPF Assessment and Plan Agree with steroids NICU will attend delivery Please call NICU with questions - Patient Problems (1) 25 weeks gestation of Current Visit: Yes Status: Acute (2) premature rupture of membranes Onset Date: 11/26/17 Current Visit: Yes Status: Acute Qualifiers: PROM onset of labor timing: unspecified duration between rupture of membranes and onset of labor Qualified Code(s): O42.919 - premature rupture of membranes, unspecified as to length of time between rupture and onset of labor, unspecified trimester
[2017-11-27] MEDS: VISTARIL PO PRN (22:51)
[2017-11-28] MEDS: CELESTONE SOLUSPAN IM SCH (00:19)
[2017-11-28] MEDS: ERY-TAB PO SCH ×5 (00:19→23:59)
[2017-11-28] MEDS: POLYCILLIN/NS 2 GM/100 ML 2 GM/100 ML BAG IV SCH ×5 (02:07→22:30)
--- NOTE | 2017-11-28 08:36 | Progress Note ---
Assessment and Plan Pt resting No c/o voiced Reviewed POC MGSO4 continues X 24 hours after 2nd dose of BMZ, will remove mckeon when MGSO4 is d/c, regular diet ordered. IUP @ 25w6d with PPROM and PTL Previous c/s X 2 P: continue POC Monitor for labor Dr Polanco aware - Patient Problems (1) 25 weeks gestation of Onset Date: ~11/28/17 Current Visit: Yes Status: Acute (2) labor in second trimester Onset Date: ~11/28/17 Current Visit: Yes Status: Acute (3) premature rupture of membranes Onset Date: 11/26/17 Current Visit: Yes Status: Acute Qualifiers: PROM onset of labor timing: unspecified duration between rupture of membranes and onset of labor Qualified Code(s): O42.919 - premature rupture of membranes, unspecified as to length of time between rupture and onset of labor, unspecified trimester Subjective - Subjective Date of service: 11/28/17 (asking for food; consulted Diet ordered ) Principal diagnosis: IUP @ 25+6, PPROM Patient reports: loss of fluid, movement normal, no new complaints, no vaginal bleeding, no contractions Objective - Vital Signs Vital Signs: Vital Signs - 12hr 11/28/17 11/28/17 01:34 05:48 Temperature 98.5 F 98.9 F Pulse Rate 91 H 92 H Respiratory 16 16 Rate Blood Pressure 113/67 118/69 [Right] - Exam Breasts: deferred Cardiovascular: Regular rate Lungs: Normal air movement Abdomen: Present: normal appearance, soft. Absent: distention, tenderness Uterus: Present: normal FHR: auscultation normal, category 1 Uterine Contraction Monitor Mode: External Uterine Contraction Pattern: Absent Uterine Tone Measurement Phase: Resting Extremities: normal Deep Tendon Reflex Grade: Normal +2 - Labs Labs: Abnormal Labs 11/26/17 11/26/17 11/26/17 23:38 23:38 23:38 WBC 15.4 H [place] % (Auto) 7.9 H [place] # 1.2 H Baso # 0.2 H Seg Neutrophils # 10.4 H Carbon Dioxide 20 L Creatinine 0.5 L Magnesium Albumin 3.6 L Urine WBC (Auto) 121.0 H 11/27/17 11/27/17 11/28/17 14:06 21:16 00:22 WBC [place] % (Auto) [place] # Baso # Seg Neutrophils # Carbon Dioxide Creatinine Magnesium 5.50 H 5.60 H 5.90 H Albumin Urine WBC (Auto) 11/28/17 05:53 WBC [place] % (Auto) [place] # Baso # Seg Neutrophils # Carbon Dioxide Creatinine Magnesium 5.90 H Albumin Urine WBC (Auto) Laboratory Results - last 24 hr 11/27/17 11/27/17 11/28/17 14:06 21:16 00:22 Magnesium 5.50 H 5.60 H 5.90 H 11/28/17 05:53 Magnesium 5.90 H
[2017-11-28] MEDS: PRENATAL VITAMIN PO SCH (09:48)
--- NOTE | 2017-11-28 12:37 | Progress Note ---
Assessment and Plan A; 1. IUP at 25 3/7 weeks gestation 2. PROM 3. Prior CS x 2 Rec: 1) Continue inpatient expectant management 2) Complete latency antibiotics ( IV x 48 hr , PO x 5 days ) 3) Twice weekly testing beginning at 27-28 weeks gestation Growth scan q 3 weeks 4) Indication for delivery : 34 weeks, labor , chorioamnionitis, or non- reassuring maternal or evaluation 5) Discontinue tocolysis after completion of steroids ( 48 hr after 1st dose of BMZ) Subjective - Subjective Principal diagnosis: IUP @ 25+6, PPROM Interval history: No complaints. Denies contractions. Good movement. Patient reports: loss of fluid, movement normal, no new complaints, no vaginal bleeding, no contractions Objective - Vital Signs Vital Signs: Vital Signs - 12hr 11/28/17 11/28/17 11/28/17 01:31 01:34 01:35 Temperature 98.5 F Pulse Rate 85 91 H 91 H Respiratory 16 Rate Blood Pressure 108/64 113/67 Blood Pressure 113/67 [Right] 11/28/17 11/28/17 11/28/17 03:31 05:32 05:48 Temperature 98.9 F Pulse Rate 91 H 90 92 H Respiratory 16 Rate Blood Pressure 124/64 117/66 Blood Pressure 118/69 [Right] 11/28/17 11/28/17 11/28/17 05:50 07:31 09:00 Temperature 98.7 F Pulse Rate 92 H 85 Respiratory Rate Blood Pressure 118/69 100/52 Blood Pressure [Right] 11/28/17 11/28/17 11/28/17 09:31 11:31 12:00 Temperature 98.8 F Pulse Rate 89 99 H Respiratory Rate Blood Pressure 98/57 115/59 Blood Pressure [Right] - Exam Abdomen: Present: soft Extremities: normal - Labs Labs: Abnormal Labs 11/26/17 11/26/17 11/26/17 23:38 23:38 23:38 WBC 15.4 H [place] % (Auto) 7.9 H [place] # 1.2 H Baso # 0.2 H Seg Neutrophils # 10.4 H Carbon Dioxide 20 L Creatinine 0.5 L Magnesium Albumin 3.6 L Urine WBC (Auto) 121.0 H 11/27/17 11/27/17 11/28/17 14:06 21:16 00:22 WBC [place] % (Auto) [place] # Baso # Seg Neutrophils # Carbon Dioxide Creatinine Magnesium 5.50 H 5.60 H 5.90 H Albumin Urine WBC (Auto) 11/28/17 11/28/17 05:53 10:58 WBC [place] % (Auto) [place] # Baso # Seg Neutrophils # Carbon Dioxide Creatinine Magnesium 5.90 H 5.40 H Albumin Urine WBC (Auto) Laboratory Results - last 24 hr 11/27/17 11/27/17 11/28/17 14:06 21:16 00:22 Magnesium 5.50 H 5.60 H 5.90 H 11/28/17 11/28/17 05:53 10:58 Magnesium 5.90 H 5.40 H
[2017-11-28] MEDS ORDERED: TRIMOX PO SCH (22:00)
[2017-11-28] MEDS: LACTATED RINGERS 1,000 ML IV SCH (22:36)
[2017-11-29] MEDS: VISTARIL PO PRN
[2017-11-29] MEDS: LACTATED RINGERS 1,000 ML IV SCH ×2 (04:13→21:18)
[2017-11-29] MEDS: POLYCILLIN/NS 2 GM/100 ML 2 GM/100 ML BAG IV SCH (04:14)
[2017-11-29] MEDS: ERY-TAB PO SCH ×3 (06:01→19:42)
--- NOTE | 2017-11-29 08:30 | Progress Note ---
Assessment and Plan A; 1. IUP at 25 4/7 weeks gestation 2. PROM 3. Prior CS x 2 4. s/p BMZ Rec: 1) Continue inpatient expectant management 2) Complete latency antibiotics 3) Twice weekly testing beginning at 27-28 weeks gestation Growth scan q 3 weeks 4) Indication for delivery : 34 weeks, labor , chorioamnionitis, or non- reassuring maternal or evaluation Subjective - Subjective Date of service: 11/29/17 Principal diagnosis: IUP @ 25 4/7, PPROM Interval history: Had a deceleration earlier Reports increased LOF Denied contractions ,bleeding Patient reports: loss of fluid, movement normal, no new complaints, no vaginal bleeding, no contractions Objective - Vital Signs Vital Signs: Vital Signs - 12hr 11/28/17 11/28/17 11/28/17 21:31 22:30 23:25 Temperature 98.8 F 98.7 F Pulse Rate 76 76 74 Respiratory 20 16 Rate Blood Pressure 105/51 Blood Pressure 105/51 108/55 [Right] O2 Sat by Pulse Oximetry 11/28/17 11/28/17 11/29/17 23:26 23:31 00:06 Temperature Pulse Rate 74 76 87 Respiratory Rate Blood Pressure 108/55 114/63 Blood Pressure [Right] O2 Sat by Pulse 0 L Oximetry 11/29/17 11/29/17 11/29/17 00:08 00:12 01:31 Temperature Pulse Rate 78 95 H 73 Respiratory Rate Blood Pressure 111/55 Blood Pressure [Right] O2 Sat by Pulse 0 L 0 L Oximetry 11/29/17 11/29/17 11/29/17 03:33 04:14 04:16 Temperature 98.8 F Pulse Rate 88 74 74 Respiratory 18 Rate Blood Pressure 83/49 87/50 Blood Pressure 87/50 [Right] O2 Sat by Pulse Oximetry 11/29/17 11/29/17 11/29/17 05:31 07:33 07:35 Temperature Pulse Rate 75 73 69 Respiratory Rate Blood Pressure 100/59 84/49 90/55 Blood Pressure [Right] O2 Sat by Pulse Oximetry 11/29/17 11/29/17 11/29/17 07:37 07:38 08:10 Temperature Pulse Rate 78 76 90 Respiratory Rate Blood Pressure 94/57 98/59 102/61 Blood Pressure [Right] O2 Sat by Pulse Oximetry - Exam Abdomen: Present: normal appearance, soft (no palpable contractions ) FHR: category 1 Uterine Contraction Pattern: Absent Extremities: normal - Labs Labs: Abnormal Labs 11/26/17 11/26/17 11/26/17 23:38 23:38 23:38 WBC 15.4 H [place] % (Auto) 7.9 H [place] # 1.2 H Baso # 0.2 H Seg Neutrophils # 10.4 H Carbon Dioxide 20 L Creatinine 0.5 L Magnesium Albumin 3.6 L Urine WBC (Auto) 121.0 H 11/27/17 11/27/17 11/28/17 14:06 21:16 00:22 WBC [place] % (Auto) [place] # Baso # Seg Neutrophils # Carbon Dioxide Creatinine Magnesium 5.50 H 5.60 H 5.90 H Albumin Urine WBC (Auto) 11/28/17 11/28/17 11/28/17 05:53 10:58 19:29 WBC [place] % (Auto) [place] # Baso # Seg Neutrophils # Carbon Dioxide Creatinine Magnesium 5.90 H 5.40 H 4.10 H Albumin Urine WBC (Auto) Laboratory Results - last 24 hr 11/28/17 11/28/17 10:58 19:29 Magnesium 5.40 H 4.10 H
--- NOTE | 2017-11-29 08:37 | Progress Note ---
Assessment and Plan IUP@25 4/7wga PPROM PTL cervical exam (2cm/100%) on admission Previous C/S Breech presentation - Patient Problems (1) 25 weeks gestation of Onset Date: ~11/28/17 Current Visit: Yes Status: Acute (2) premature rupture of membranes Onset Date: 11/26/17 Current Visit: Yes Status: Acute Qualifiers: PROM onset of labor timing: unspecified duration between rupture of membranes and onset of labor Qualified Code(s): O42.919 - premature rupture of membranes, unspecified as to length of time between rupture and onset of labor, unspecified trimester Plan to address problem: Steriods completed, MgSO4 discontinued Now receiving Amoxicillin and EES day 3 No s/s chorioamnionitis (3) labor in second trimester Onset Date: ~11/28/17 Current Visit: Yes Status: Acute (4) delivery delivered Current Visit: No Status: Acute (5) Breech presentation Current Visit: Yes Status: Acute Subjective - Subjective Date of service: 11/29/17 Principal diagnosis: IUP @ 25 06/02, PPROM Interval history: no complaints, denies contraction or bleeding. Patient reports: loss of fluid, movement normal, no new complaints, no vaginal bleeding, no contractions Objective - Vital Signs Vital Signs: Vital Signs - 12hr 11/28/17 11/28/17 11/28/17 21:31 22:30 23:25 Temperature 98.8 F 98.7 F Pulse Rate 76 76 74 Respiratory 20 16 Rate Blood Pressure 105/51 Blood Pressure 105/51 108/55 [Right] O2 Sat by Pulse Oximetry 11/28/17 11/28/17 11/29/17 23:26 23:31 00:06 Temperature Pulse Rate 74 76 87 Respiratory Rate Blood Pressure 108/55 114/63 Blood Pressure [Right] O2 Sat by Pulse 0 L Oximetry 11/29/17 11/29/17 11/29/17 00:08 00:12 01:31 Temperature Pulse Rate 78 95 H 73 Respiratory Rate Blood Pressure 111/55 Blood Pressure [Right] O2 Sat by Pulse 0 L 0 L Oximetry 11/29/17 11/29/17 11/29/17 03:33 04:14 04:16 Temperature 98.8 F Pulse Rate 88 74 74 Respiratory 18 Rate Blood Pressure 83/49 87/50 Blood Pressure 87/50 [Right] O2 Sat by Pulse Oximetry 11/29/17 11/29/17 11/29/17 05:31 07:33 07:35 Temperature Pulse Rate 75 73 69 Respiratory Rate Blood Pressure 100/59 84/49 90/55 Blood Pressure [Right] O2 Sat by Pulse Oximetry 11/29/17 11/29/17 11/29/17 07:37 07:38 08:10 Temperature Pulse Rate 78 76 90 Respiratory Rate Blood Pressure 94/57 98/59 102/61 Blood Pressure [Right] O2 Sat by Pulse Oximetry - Exam Breasts: deferred Cardiovascular: Regular rate Lungs: Normal air movement Abdomen: Present: normal appearance, soft. Absent: distention, tenderness, guarding Uterus: Present: fundal height above umbilicus. Absent: tenderness FHR: category 1 Uterine Contraction Monitor Mode: External Uterine Contraction Pattern: Irregular - Labs Labs: Abnormal Labs 11/26/17 11/26/17 11/26/17 23:38 23:38 23:38 WBC 15.4 H [place] % (Auto) 7.9 H [place] # 1.2 H Baso # 0.2 H Seg Neutrophils # 10.4 H Carbon Dioxide 20 L Creatinine 0.5 L Magnesium Albumin 3.6 L Urine WBC (Auto) 121.0 H 11/27/17 11/27/17 11/28/17 14:06 21:16 00:22 WBC [place] % (Auto) [place] # Baso # Seg Neutrophils # Carbon Dioxide Creatinine Magnesium 5.50 H 5.60 H 5.90 H Albumin Urine WBC (Auto) 11/28/17 11/28/17 11/28/17 05:53 10:58 19:29 WBC [place] % (Auto) [place] # Baso # Seg Neutrophils # Carbon Dioxide Creatinine Magnesium 5.90 H 5.40 H 4.10 H Albumin Urine WBC (Auto) Laboratory Results - last 24 hr 11/28/17 11/28/17 10:58 19:29 Magnesium 5.40 H 4.10 H
[2017-11-29] MEDS: PRENATAL VITAMIN PO SCH (09:47)
[2017-11-29] MEDS: COLACE PO SCH (09:47)
[2017-11-29] MEDS: TRIMOX PO SCH ×2 (10:24→18:40)
[2017-11-30] MEDS: TRIMOX PO SCH ×4 (01:39→21:55)
[2017-11-30] MEDS: ERY-TAB PO SCH ×5 (01:39→23:13)
[2017-11-30] MEDS: LACTATED RINGERS 1,000 ML IV SCH ×3 (05:10→21:08)
--- NOTE | 2017-11-30 07:45 | Progress Note ---
Assessment and Plan pt denies ctx or cramping, clear odorless fluid present. Abd soft and nontender. afebrile. FHT CAT1. Bed bath and bed [place] at this time d/t breech presentation and PPROM. A; 1. IUP at 25 5/7 weeks gestation 2. PROM 3. Prior CS x 2 4. s/p BMZ Rec per [facility]: 1) Continue inpatient expectant management 2) Complete latency antibiotics 3) Twice weekly testing beginning at 27-28 weeks gestation Growth scan q 3 weeks 4) Indication for delivery : 34 weeks, labor , chorioamnionitis, or non- reassuring maternal or evaluation - Patient Problems (1) 25 weeks gestation of Onset Date: ~11/28/17 Current Visit: Yes Status: Acute (2) premature rupture of membranes Onset Date: 11/26/17 Current Visit: Yes Status: Acute Qualifiers: PROM onset of labor timing: unspecified duration between rupture of membranes and onset of labor Qualified Code(s): O42.919 - premature rupture of membranes, unspecified as to length of time between rupture and onset of labor, unspecified trimester (3) History of delivery, currently Current Visit: No Status: Acute Subjective - Subjective Date of service: 11/30/17 Principal diagnosis: IUP @ 25 5/7, PPROM Patient reports: loss of fluid, movement normal, no new complaints, no vaginal bleeding, no contractions Objective - Vital Signs Vital Signs: Vital Signs - 12hr 11/29/17 11/29/17 11/29/17 20:09 20:39 21:10 Temperature Pulse Rate 82 77 78 Respiratory Rate Blood Pressure 106/60 105/57 104/57 Blood Pressure [Left] O2 Sat by Pulse Oximetry 11/29/17 11/29/17 11/29/17 21:39 22:01 22:06 Temperature Pulse Rate 71 75 77 Respiratory Rate Blood Pressure 104/55 Blood Pressure [Left] O2 Sat by Pulse 98 98 Oximetry 11/29/17 11/29/17 11/29/17 22:09 22:11 22:16 Temperature Pulse Rate 75 77 79 Respiratory Rate Blood Pressure 108/59 Blood Pressure [Left] O2 Sat by Pulse 97 98 Oximetry 11/29/17 11/29/17 11/29/17 22:21 22:26 22:31 Temperature Pulse Rate 73 69 74 Respiratory Rate Blood Pressure Blood Pressure [Left] O2 Sat by Pulse 97 98 98 Oximetry 11/29/17 11/29/17 11/29/17 22:40 22:41 22:45 Temperature Pulse Rate 84 66 72 Respiratory Rate Blood Pressure 99/53 Blood Pressure [Left] O2 Sat by Pulse 99 94 97 Oximetry 11/29/17 11/29/17 11/29/17 22:50 22:54 22:55 Temperature 98.3 F Pulse Rate 73 74 Respiratory 18 Rate Blood Pressure Blood Pressure [Left] O2 Sat by Pulse 97 97 Oximetry 11/29/17 11/29/17 11/30/17 23:10 23:40 00:09 Temperature Pulse Rate 68 71 67 Respiratory Rate Blood Pressure 81/43 89/54 88/53 Blood Pressure [Left] O2 Sat by Pulse Oximetry 11/30/17 11/30/17 11/30/17 00:41 01:10 01:39 Temperature Pulse Rate 65 66 81 Respiratory Rate Blood Pressure 110/57 108/56 98/52 Blood Pressure [Left] O2 Sat by Pulse Oximetry 11/30/17 11/30/17 11/30/17 03:36 03:37 07:26 Temperature 98.7 F Pulse Rate 79 63 Respiratory 16 Rate Blood Pressure 98/56 95/57 Blood Pressure [Left] O2 Sat by Pulse Oximetry 11/30/17 07:29 Temperature 98.5 F Pulse Rate 63 Respiratory 18 Rate Blood Pressure Blood Pressure 95/57 [Left] O2 Sat by Pulse Oximetry - Exam Breasts: normal Cardiovascular: Regular rate Lungs: Clear to auscultation Abdomen: Present: normal appearance, soft Vulva: both: normal Uterus: Present: normal FHR: auscultation normal, category 1 Uterine Contraction Monitor Mode: External Uterine Contraction Pattern: Absent Uterine Tone Measurement Phase: Resting Extremities: normal Deep Tendon Reflex Grade: Normal +2 - Labs Labs: Abnormal Labs 11/26/17 11/26/17 11/26/17 23:38 23:38 23:38 WBC 15.4 H [place] % (Auto) 7.9 H [place] # 1.2 H Baso # 0.2 H Seg Neutrophils # 10.4 H Carbon Dioxide 20 L Creatinine 0.5 L Magnesium Albumin 3.6 L Urine WBC (Auto) 121.0 H 11/27/17 11/27/17 11/28/17 14:06 21:16 00:22 WBC [place] % (Auto) [place] # Baso # Seg Neutrophils # Carbon Dioxide Creatinine Magnesium 5.50 H 5.60 H 5.90 H Albumin Urine WBC (Auto) 11/28/17 11/28/17 11/28/17 05:53 10:58 19:29 WBC [place] % (Auto) [place] # Baso # Seg Neutrophils # Carbon Dioxide Creatinine Magnesium 5.90 H 5.40 H 4.10 H Albumin Urine WBC (Auto)
[2017-11-30] MEDS: PRENATAL VITAMIN PO SCH (10:13)
[2017-11-30] MEDS: COLACE PO SCH (10:13)
--- NOTE | 2017-11-30 13:24 | Progress Note ---
Assessment and Plan 1) Continue inpatient expectant management 2) Complete latency antibiotics day 4 3) Twice weekly testing beginning at 27-28 weeks gestation Growth scan q 3 weeks 4) Indication for delivery : 34 weeks, labor , chorioamnionitis, or non- reassuring maternal or evaluation - Patient Problems (1) 25 weeks gestation of Onset Date: ~11/28/17 Current Visit: Yes Status: Acute (2) premature rupture of membranes Onset Date: 11/26/17 Current Visit: Yes Status: Acute Qualifiers: PROM onset of labor timing: unspecified duration between rupture of membranes and onset of labor Qualified Code(s): O42.919 - premature rupture of membranes, unspecified as to length of time between rupture and onset of labor, unspecified trimester Plan to address problem: No s/s chorioamnionitis (3) labor in second trimester Onset Date: ~11/28/17 Current Visit: Yes Status: Acute (4) delivery delivered Current Visit: No Status: Acute (5) Breech presentation Current Visit: Yes Status: Acute Subjective - Subjective Date of service: 11/30/17 Principal diagnosis: IUP @ 25 5/7, PPROM Interval history: no complaints, denies contraction or bleeding, no leaking Patient reports: loss of fluid, movement normal, no new complaints, no vaginal bleeding, no contractions Objective - Vital Signs Vital Signs: Vital Signs - 12hr 11/30/17 11/30/17 11/30/17 01:39 03:36 03:37 Temperature 98.7 F Pulse Rate 81 79 Respiratory 16 Rate Blood Pressure 98/52 98/56 Blood Pressure [Left] Blood Pressure [Right] 11/30/17 11/30/17 11/30/17 07:26 07:29 12:22 Temperature 98.5 F 96.8 F L Pulse Rate 63 63 73 Respiratory 18 18 Rate Blood Pressure 95/57 102/60 Blood Pressure 95/57 [Left] Blood Pressure 102/60 [Right] - Exam Breasts: deferred Lungs: Normal air movement Abdomen: Present: soft. Absent: distention, tenderness Uterus: Present: fundal height above umbilicus. Absent: tenderness FHR: category 1 Extremities: normal - Labs Labs: Abnormal Labs 11/26/17 11/26/17 11/26/17 23:38 23:38 23:38 WBC 15.4 H [place] % (Auto) 7.9 H [place] # 1.2 H Baso # 0.2 H Seg Neutrophils # 10.4 H Carbon Dioxide 20 L Creatinine 0.5 L Magnesium Albumin 3.6 L Urine WBC (Auto) 121.0 H 11/27/17 11/27/17 11/28/17 14:06 21:16 00:22 WBC [place] % (Auto) [place] # Baso # Seg Neutrophils # Carbon Dioxide Creatinine Magnesium 5.50 H 5.60 H 5.90 H Albumin Urine WBC (Auto) 11/28/17 11/28/17 11/28/17 05:53 10:58 19:29 WBC [place] % (Auto) [place] # Baso # Seg Neutrophils # Carbon Dioxide Creatinine Magnesium 5.90 H 5.40 H 4.10 H Albumin Urine WBC (Auto)
[2017-11-30] MEDS ORDERED: BICITRA PO ONE (20:42)
[2017-12-01] MEDS: ERY-TAB PO SCH ×3 (06:01→17:45)
[2017-12-01] MEDS: TRIMOX PO SCH ×3 (06:01→22:54)
[2017-12-01] MEDS: LACTATED RINGERS 1,000 ML IV SCH ×2 (06:03→17:46)
[2017-12-01 07:48] LABS: Hematocrit 31.2 % (30.3-42.9); Hemoglobin 10.4 gm/dl (10.1-14.3); Mean Corpuscular HGB Conc 34 % (30-34); Mean Corpuscular Hemoglobin 28 pg (28-32); Mean Corpuscular Volume 82 fl (79-97); Platelet Count 258 K/mm3 (140-440); Red Blood Count 3.78 M/mm3 (3.65-5.03); Red Cell Distribution Width 13.8 % (13.2-15.2)
--- NOTE | 2017-12-01 09:28 | Progress Note ---
Assessment and Plan A: 1. IUP at 25 6/7 weeks gestation 2. PROM 3. Prior CS x 2 4. s/p BMZ P: 1) Continue inpatient expectant management 2) Complete latency antibiotics day 3 3) Twice weekly testing beginning at 27-28 weeks gestation Growth scan q 3 weeks 4) Indication for delivery : 34 weeks, labor , chorioamnionitis, or non- reassuring maternal or evaluation aware. CBC report for today in EMR - Patient Problems (1) 25 weeks gestation of Onset Date: ~11/28/17 Current Visit: Yes Status: Acute (2) labor in second trimester Onset Date: ~11/28/17 Current Visit: Yes Status: Acute (3) premature rupture of membranes Onset Date: 11/26/17 Current Visit: Yes Status: Acute Qualifiers: PROM onset of labor timing: unspecified duration between rupture of membranes and onset of labor Qualified Code(s): O42.919 - premature rupture of membranes, unspecified as to length of time between rupture and onset of labor, unspecified trimester Plan to address problem: no s/sx of chorio Subjective - Subjective Date of service: 12/01/17 (pt w/o complaint ) Principal diagnosis: IUP @ 25 5/7, PPROM Patient reports: loss of fluid, movement normal, no new complaints, no vaginal bleeding, no contractions Objective - Vital Signs Vital Signs: Vital Signs - 12hr 11/30/17 11/30/17 11/30/17 21:56 23:11 23:13 Temperature 98.4 F 98.3 F Pulse Rate 72 Respiratory 20 18 Rate Blood Pressure 105/55 O2 Sat by Pulse 76 L Oximetry 12/01/17 12/01/17 12/01/17 04:02 06:02 07:30 Temperature 98.3 F 98.2 F 98.4 F Pulse Rate 81 Respiratory 18 18 16 Rate Blood Pressure 104/52 O2 Sat by Pulse 99 Oximetry 12/01/17 12/01/17 12/01/17 09:07 09:12 09:17 Temperature Pulse Rate 96 H 87 89 Respiratory Rate Blood Pressure 103/57 O2 Sat by Pulse 99 98 98 Oximetry 12/01/17 09:22 Temperature Pulse Rate 86 Respiratory Rate Blood Pressure O2 Sat by Pulse 98 Oximetry - Exam Breasts: deferred Cardiovascular: Regular rate Lungs: Normal air movement Abdomen: Present: normal appearance, soft. Absent: distention, tenderness Uterus: Present: normal FHR: auscultation normal, category 1 Uterine Contraction Monitor Mode: External Uterine Contraction Pattern: Absent Uterine Tone Measurement Phase: Resting Extremities: normal Deep Tendon Reflex Grade: Normal +2 - Labs Labs: Abnormal Labs 11/26/17 11/26/17 11/26/17 23:38 23:38 23:38 WBC 15.4 H [place] % (Auto) 7.9 H [place] # 1.2 H Baso # 0.2 H Seg Neutrophils # 10.4 H Carbon Dioxide 20 L Creatinine 0.5 L Magnesium Albumin 3.6 L Urine WBC (Auto) 121.0 H 11/27/17 11/27/17 11/28/17 14:06 21:16 00:22 WBC [place] % (Auto) [place] # Baso # Seg Neutrophils # Carbon Dioxide Creatinine Magnesium 5.50 H 5.60 H 5.90 H Albumin Urine WBC (Auto) 11/28/17 11/28/17 11/28/17 05:53 10:58 19:29 WBC [place] % (Auto) [place] # Baso # Seg Neutrophils # Carbon Dioxide Creatinine Magnesium 5.90 H 5.40 H 4.10 H Albumin Urine WBC (Auto) 12/01/17 07:26 WBC 13.9 H [place] % (Auto) [place] # Baso # Seg Neutrophils # Carbon Dioxide Creatinine Magnesium Albumin Urine WBC (Auto) Laboratory Results - last 24 hr 12/01/17 12/01/17 07:12 07:26 WBC 13.9 H RBC 3.78 Hgb 10.4 Hct 31.2 MCV 82 MCH 28 MCHC 34 RDW 13.8 Plt Count 258 Blood Type O POSITIVE Antibody Screen Negative
[2017-12-01] MEDS: PRENATAL VITAMIN PO SCH (09:58)
[2017-12-01] MEDS: COLACE PO SCH (09:58)
--- NOTE | 2017-12-01 15:03 | Progress Note ---
Assessment and Plan A; 1. IUP at 25 6/7 weeks gestation 2. PROM 3. Prior CS x 2 Rec: 1) Continue inpatient expectant management 2) Complete latency antibiotics ( IV x 48 hr , PO x 5 days ) 3) Twice weekly testing beginning at 27-28 weeks gestation Growth scan q 3 weeks 4) Indication for delivery : 34 weeks, labor , chorioamnionitis, or non- reassuring maternal or evaluation 5) Discontinue tocolysis after completion of steroids ( 48 hr after 1st dose of BMZ) Subjective - Subjective Principal diagnosis: IUP @ 25 5/7, PPROM Interval history: No complaints. Denies contractions. Good movement. Patient reports: loss of fluid, movement normal, no new complaints, no vaginal bleeding, no contractions Objective - Vital Signs Vital Signs: Vital Signs - 12hr 12/01/17 12/01/17 12/01/17 04:02 06:02 07:30 Temperature 98.3 F 98.2 F 98.4 F Pulse Rate 81 Respiratory 18 18 16 Rate Blood Pressure 104/52 O2 Sat by Pulse 99 Oximetry 12/01/17 12/01/17 12/01/17 09:07 09:12 09:17 Temperature Pulse Rate 96 H 87 89 Respiratory Rate Blood Pressure 103/57 O2 Sat by Pulse 99 98 98 Oximetry 12/01/17 12/01/17 12/01/17 09:22 09:27 09:32 Temperature Pulse Rate 86 90 85 Respiratory Rate Blood Pressure O2 Sat by Pulse 98 99 100 Oximetry 12/01/17 12/01/17 12/01/17 09:37 09:42 09:47 Temperature Pulse Rate 86 86 93 H Respiratory Rate Blood Pressure O2 Sat by Pulse 99 99 99 Oximetry 12/01/17 12/01/17 12/01/17 09:52 09:55 09:57 Temperature Pulse Rate 82 93 H 79 Respiratory Rate Blood Pressure O2 Sat by Pulse 99 89 98 Oximetry 12/01/17 12/01/17 12/01/17 10:02 10:07 10:12 Temperature Pulse Rate 83 74 76 Respiratory Rate Blood Pressure O2 Sat by Pulse 97 98 97 Oximetry 12/01/17 12/01/17 12/01/17 10:17 10:22 10:25 Temperature 97.7 F Pulse Rate 78 80 Respiratory Rate Blood Pressure O2 Sat by Pulse 97 96 Oximetry 12/01/17 12/01/17 12/01/17 10:27 10:32 10:37 Temperature Pulse Rate 79 78 77 Respiratory Rate Blood Pressure O2 Sat by Pulse 97 97 97 Oximetry 12/01/17 12/01/17 12/01/17 10:42 10:47 10:52 Temperature Pulse Rate 74 74 73 Respiratory Rate Blood Pressure O2 Sat by Pulse 98 97 97 Oximetry 12/01/17 12/01/17 12/01/17 10:57 11:02 11:07 Temperature Pulse Rate 65 71 70 Respiratory Rate Blood Pressure O2 Sat by Pulse 98 97 97 Oximetry 12/01/17 12/01/17 13:13 13:14 Temperature Pulse Rate 72 74 Respiratory Rate Blood Pressure 108/58 102/58 O2 Sat by Pulse Oximetry - Exam Abdomen: Present: soft - Labs Labs: Abnormal Labs 11/26/17 11/26/17 11/26/17 23:38 23:38 23:38 WBC 15.4 H [place] % (Auto) 7.9 H [place] # 1.2 H Baso # 0.2 H Seg Neutrophils # 10.4 H Carbon Dioxide 20 L Creatinine 0.5 L Magnesium Albumin 3.6 L Urine WBC (Auto) 121.0 H 11/27/17 11/27/17 11/28/17 14:06 21:16 00:22 WBC [place] % (Auto) [place] # Baso # Seg Neutrophils # Carbon Dioxide Creatinine Magnesium 5.50 H 5.60 H 5.90 H Albumin Urine WBC (Auto) 11/28/17 11/28/17 11/28/17 05:53 10:58 19:29 WBC [place] % (Auto) [place] # Baso # Seg Neutrophils # Carbon Dioxide Creatinine Magnesium 5.90 H 5.40 H 4.10 H Albumin Urine WBC (Auto) 12/01/17 07:26 WBC 13.9 H [place] % (Auto) [place] # Baso # Seg Neutrophils # Carbon Dioxide Creatinine Magnesium Albumin Urine WBC (Auto) Laboratory Results - last 24 hr 12/01/17 12/01/17 07:12 07:26 WBC 13.9 H RBC 3.78 Hgb 10.4 Hct 31.2 MCV 82 MCH 28 MCHC 34 RDW 13.8 Plt Count 258 Blood Type O POSITIVE Antibody Screen Negative
[2017-12-02] MEDS: ERY-TAB PO SCH ×5 (00:28→23:40)
[2017-12-02] MEDS: LACTATED RINGERS 1,000 ML IV SCH ×2 (03:24→23:39)
[2017-12-02] MEDS: TRIMOX PO SCH ×3 (06:02→22:13)
[2017-12-02] MEDS: COLACE PO SCH (10:20)
[2017-12-02] MEDS: PRENATAL VITAMIN PO SCH (10:20)
--- NOTE | 2017-12-02 12:09 | Progress Note ---
Assessment and Plan Pt is in very good spirits today. VSS Reactive NST. Consulted with Pt may be OOB to shower QD. No s/sx of chorio. CBC and T&S updated on 12-01-17 A; 1. IUP at 26w1d weeks gestation 2. PROM 3. Prior CS x 2 Rec: 1) Continue inpatient expectant management 2) Complete latency antibiotics; This is day 3 of po ABX 3) Twice weekly testing beginning at 27-28 weeks gestation Growth scan q 3 weeks 4) Indication for delivery : 34 weeks, labor , chorioamnionitis, or non- reassuring maternal or evaluation 5) BMZ is complete - Patient Problems (1) labor in second trimester Onset Date: ~11/28/17 Current Visit: Yes Status: Acute (2) premature rupture of membranes Onset Date: 11/26/17 Current Visit: Yes Status: Acute Qualifiers: PROM onset of labor timing: unspecified duration between rupture of membranes and onset of labor Qualified Code(s): O42.919 - premature rupture of membranes, unspecified as to length of time between rupture and onset of labor, unspecified trimester (3) 25 years of age Current Visit: Yes Status: Acute Subjective - Subjective Date of service: 12/02/17 (asking to shower) Principal diagnosis: IUP @ 26w1d PPROM Patient reports: loss of fluid, movement normal, no new complaints, no vaginal bleeding, no contractions Objective - Vital Signs Vital Signs: Vital Signs - 12hr 12/02/17 12/02/17 12/02/17 05:00 06:02 10:09 Temperature 98.8 F 98 F Pulse Rate 73 92 H Respiratory 18 18 Rate Blood Pressure 109/65 Blood Pressure 104/59 [Left] O2 Sat by Pulse Oximetry 12/02/17 12/02/17 12/02/17 10:12 10:17 11:49 Temperature 97.4 F L Pulse Rate 86 88 Respiratory Rate Blood Pressure 104/59 Blood Pressure [Left] O2 Sat by Pulse 97 97 Oximetry - Exam Breasts: normal Cardiovascular: Regular rate Lungs: Clear to auscultation, Normal air movement Abdomen: Present: normal appearance, soft, normal bowel sounds. Absent: distention, tenderness Uterus: Present: normal FHR: auscultation normal, category 1 Uterine Contraction Monitor Mode: External Uterine Contraction Pattern: Absent Uterine Tone Measurement Phase: Resting Uterine Contraction Intensity: Mild Extremities: normal Deep Tendon Reflex Grade: Normal +2 - Labs Labs: Abnormal Labs 11/26/17 11/26/17 11/26/17 23:38 23:38 23:38 WBC 15.4 H [place] % (Auto) 7.9 H [place] # 1.2 H Baso # 0.2 H Seg Neutrophils # 10.4 H Carbon Dioxide 20 L Creatinine 0.5 L Magnesium Albumin 3.6 L Urine WBC (Auto) 121.0 H 11/27/17 11/27/17 11/28/17 14:06 21:16 00:22 WBC [place] % (Auto) [place] # Baso # Seg Neutrophils # Carbon Dioxide Creatinine Magnesium 5.50 H 5.60 H 5.90 H Albumin Urine WBC (Auto) 11/28/17 11/28/17 11/28/17 05:53 10:58 19:29 WBC [place] % (Auto) [place] # Baso # Seg Neutrophils # Carbon Dioxide Creatinine Magnesium 5.90 H 5.40 H 4.10 H Albumin Urine WBC (Auto) 12/01/17 07:26 WBC 13.9 H [place] % (Auto) [place] # Baso # Seg Neutrophils # Carbon Dioxide Creatinine Magnesium Albumin Urine WBC (Auto)
[2017-12-03] MEDS: TRIMOX PO SCH ×3 (06:32→21:51)
[2017-12-03] MEDS: ERY-TAB PO SCH ×3 (06:32→17:59)
--- NOTE | 2017-12-03 08:57 | Progress Note ---
Assessment and Plan - Patient Problems (1) 26 weeks gestation of Current Visit: Yes Status: Acute (2) premature rupture of membranes Onset Date: 11/26/17 Current Visit: Yes Status: Acute Qualifiers: PROM onset of labor timing: unspecified duration between rupture of membranes and onset of labor Qualified Code(s): O42.919 - premature rupture of membranes, unspecified as to length of time between rupture and onset of labor, unspecified trimester Plan to address problem: Continue present management. Patient without signs of infection or labor. Continue by mouth antibiotics observation with plans to deliver at 34 weeks unless indicated earlier. Subjective - Subjective Date of service: 12/03/17 Principal diagnosis: IUP @ 26w1d PPROM Patient reports: loss of fluid, movement normal, no new complaints, no vaginal bleeding, no contractions Objective - Vital Signs Vital Signs: Vital Signs - 12hr 12/02/17 12/02/17 12/03/17 22:15 22:16 04:59 Temperature 98.8 F Pulse Rate 78 68 Respiratory 14 Rate Blood Pressure 95/56 O2 Sat by Pulse 94 Oximetry 12/03/17 12/03/17 12/03/17 05:00 06:35 06:38 Temperature 98.3 F Pulse Rate 70 81 Respiratory 14 Rate Blood Pressure 101/56 O2 Sat by Pulse 96 Oximetry 12/03/17 07:42 Temperature 97 F L Pulse Rate Respiratory Rate Blood Pressure O2 Sat by Pulse Oximetry - Exam Breasts: deferred Cardiovascular: Regular rate Abdomen: Present: normal appearance, soft. Absent: tenderness Uterus: Present: firm Uterine Contraction Pattern: Irregular Uterine Tone Measurement Phase: Resting Extremities: edema - Labs Labs: Abnormal Labs 11/26/17 11/26/17 11/26/17 23:38 23:38 23:38 WBC 15.4 H [place] % (Auto) 7.9 H [place] # 1.2 H Baso # 0.2 H Seg Neutrophils # 10.4 H Carbon Dioxide 20 L Creatinine 0.5 L Magnesium Albumin 3.6 L Urine WBC (Auto) 121.0 H 11/27/17 11/27/17 11/28/17 14:06 21:16 00:22 WBC [place] % (Auto) [place] # Baso # Seg Neutrophils # Carbon Dioxide Creatinine Magnesium 5.50 H 5.60 H 5.90 H Albumin Urine WBC (Auto) 10/05/1311/28/17 11/28/17 05:53 10:58 19:29 WBC [place] % (Auto) [place] # Baso # Seg Neutrophils # Carbon Dioxide Creatinine Magnesium 5.90 H 5.40 H 4.10 H Albumin Urine WBC (Auto) 12/01/17 07:26 WBC 13.9 H [place] % (Auto) [place] # Baso # Seg Neutrophils # Carbon Dioxide Creatinine Magnesium Albumin Urine WBC (Auto)
[2017-12-03] MEDS: LACTATED RINGERS 1,000 ML IV SCH (09:01)
[2017-12-03] MEDS: PRENATAL VITAMIN PO SCH (09:10)
[2017-12-03] MEDS: COLACE PO SCH (09:10)
--- NOTE | 2017-12-03 18:07 | Progress Note ---
Assessment and Plan 1. PPROM at 26 1/7 weeks' 2. Previous C/S x 2 1. Continue expectant management 2. Start twice weekly surveillance at 27 weeks' Subjective - Subjective Date of service: 12/03/17 (Feeling well, fetus active; denied contractions) Principal diagnosis: IUP @ 26w1d PPROM Patient reports: loss of fluid, movement normal, no new complaints, no vaginal bleeding, no contractions Objective - Vital Signs Vital Signs: Vital Signs - 12hr 12/03/17 12/03/17 12/03/17 06:35 06:38 07:42 Temperature 98.3 F 97 F L Pulse Rate 81 Respiratory 14 Rate Blood Pressure 101/56 Blood Pressure [Left] Blood Pressure [Right] O2 Sat by Pulse Oximetry 12/03/17 12/03/17 12/03/17 09:05 09:06 09:11 Temperature 97.3 F L Pulse Rate 107 H 107 H 107 H Respiratory 20 Rate Blood Pressure 105/59 Blood Pressure 105/59 [Left] Blood Pressure [Right] O2 Sat by Pulse 97 97 97 Oximetry 12/03/17 12/03/17 12/03/17 11:41 11:43 14:47 Temperature 97 F L 97.5 F L Pulse Rate 85 80 Respiratory 24 20 Rate Blood Pressure 104/59 Blood Pressure 104/59 104/59 [Left] Blood Pressure [Right] O2 Sat by Pulse 97 98 97 Oximetry 12/03/17 12/03/17 14:49 15:28 Temperature 98.0 F Pulse Rate 81 76 Respiratory 16 Rate Blood Pressure 109/58 Blood Pressure [Left] Blood Pressure 109/58 [Right] O2 Sat by Pulse 97 97 Oximetry - Exam Narrative Exam: Abd soft, notender; FHT's reassuring - Labs Labs: Abnormal Labs 11/26/17 11/26/17 11/26/17 23:38 23:38 23:38 WBC 15.4 H [place] % (Auto) 7.9 H [place] # 1.2 H Baso # 0.2 H Seg Neutrophils # 10.4 H Carbon Dioxide 20 L Creatinine 0.5 L Magnesium Albumin 3.6 L Urine WBC (Auto) 121.0 H 11/27/17 11/27/17 11/28/17 14:06 21:16 00:22 WBC [place] % (Auto) [place] # Baso # Seg Neutrophils # Carbon Dioxide Creatinine Magnesium 5.50 H 5.60 H 5.90 H Albumin Urine WBC (Auto) 11/28/17 11/28/17 11/28/17 05:53 10:58 19:29 WBC [place] % (Auto) [place] # Baso # Seg Neutrophils # Carbon Dioxide Creatinine Magnesium 5.90 H 5.40 H 4.10 H Albumin Urine WBC (Auto) 12/01/17 07:26 WBC 13.9 H [place] % (Auto) [place] # Baso # Seg Neutrophils # Carbon Dioxide Creatinine Magnesium Albumin Urine WBC (Auto)
[2017-12-03] MEDS ORDERED: NARCAN 2 MG/2 ML IV PRN (21:50)
--- NOTE | 2017-12-03 21:52 | Anesthesia Consultation ---
Anesthesia Consult and Med Hx Date of service: 12/03/17 - Airway Anesthetic Teeth Evaluation: Good ROM Head & Neck: Adequate Mental/Hyoid Distance: Adequate Mallampati Class: Class II - Pulmonary Exam CTA: Yes - Cardiac Exam Cardiac Exam: RRR - Pre-Operative Health Status ASA Pre-Surgery Classification: ASA2 Proposed Anesthetic Plan: Epidural - Pulmonary Hx Smoking: No Hx Asthma: No Hx Respiratory Symptoms: No SOB: No COPD: No Hx Pneumonia: No Hx Sleep Apnea: No - Cardiovascular System Hx Hypertension: No Hx Coronary Artery Disease: No Hx Heart Attack/AMI: No Hx Angina: No Hx Percutaneous Transluminal Coronary Angioplasty (PTCA): No Hx Cardia Arrhythmia: No Hx Pacemaker: No Hx Internal Defibrillator: No Hx Valvular Heart Disease: No Hx Heart Murmur: No Hx Peripheral Vascular Disease: No - Central Nervous System Hx Neuromuscular Disorder: No Hx Seizures: No CVA: No Hx Back Pain: No Hx Psychiatric Problems: No - Gastrointestinal Hx Ulcer: No Hx Gastroesophageal Reflux Disease: No - Endocrine Hx Renal Disease: No Hx End Stage Renal Disease: No Hx Liver Disease: No Hx Insulin Dependent Diabetes: No Hx Non-Insulin Dependent Diabetes: No Hx Thyroid Disease: No Hx Hypothyroidism: No Hx Hyperthyroidism: No - Hematic Hx Anemia: No Hx Sickle Cell Disease: No - Other Systems Hx Alcohol Use: No Hx Substance Use: No Hx Cancer: No Hx Obesity: No
[2017-12-03] MEDS ORDERED: fentaNYL-BUPIV 2 MCG/ML-0.125% 200 MCG/100 ML BAG EPIDURAL SCH (22:00)
[2017-12-04] MEDS: ERY-TAB PO SCH ×2 (00:30→05:11)
[2017-12-04] MEDS: TRIMOX PO SCH (05:11)
[2017-12-04] MEDS: ALUM-MAG HYDROX-SIMETH 200-200-20MG/5ML PO PRN (05:22)
[2017-12-04] MEDS: LACTATED RINGERS 1,000 ML IV SCH ×2 (06:18→19:30)
--- NOTE | 2017-12-04 06:41 | Progress Note ---
<SHELLI TOVAR - Last Filed: 12/04/17 06:33> Assessment and Plan Pt sitting up in bed No c/o voiced NST reactive. Afebrile. OOB for AM care later this AM. consulted A; 1. IUP at 26w3d weeks gestation 2. PROM 3. Prior CS x 2 Rec: 1) Continue inpatient expectant management 2) Complete latency antibiotics; This is day 5 of po ABX 3) Twice weekly testing beginning at 27-28 weeks gestation Growth scan q 3 weeks 4) Indication for delivery : 34 weeks, labor , chorioamnionitis, or non- reassuring maternal or evaluation 5) BMZ is complete - Patient Problems (1) labor in second trimester Onset Date: ~11/28/17 Current Visit: Yes Status: Acute (2) premature rupture of membranes Onset Date: 11/26/17 Current Visit: Yes Status: Acute Qualifiers: PROM onset of labor timing: unspecified duration between rupture of membranes and onset of labor Qualified Code(s): O42.919 - premature rupture of membranes, unspecified as to length of time between rupture and onset of labor, unspecified trimester (3) 25 years of age Current Visit: Yes Status: Acute Subjective - Subjective Date of service: 12/04/17 (no c/o voiced) Principal diagnosis: IUP @ 26w3d PPROM Patient reports: loss of fluid, movement normal, no new complaints, no vaginal bleeding, no contractions Objective - Vital Signs Vital Signs: Vital Signs - 12hr 12/03/17 12/04/17 12/04/17 20:30 00:49 05:06 Temperature Pulse Rate 102 H 91 H 79 Respiratory Rate Blood Pressure 109/64 101/59 109/61 Blood Pressure [Right] 12/04/17 05:23 Temperature 98.1 F Pulse Rate 79 Respiratory 18 Rate Blood Pressure Blood Pressure 109/61 [Right] - Exam Breasts: deferred Cardiovascular: Regular rate Lungs: Clear to auscultation, Normal air movement Abdomen: Present: normal appearance, soft. Absent: distention, tenderness Uterus: Present: normal FHR: auscultation normal, category 1 Uterine Contraction Monitor Mode: External Uterine Contraction Pattern: Absent Uterine Tone Measurement Phase: Resting Extremities: normal Deep Tendon Reflex Grade: Normal +2 - Labs Labs: Abnormal Labs 11/26/17 11/26/17 11/26/17 23:38 23:38 23:38 WBC 15.4 H [place] % (Auto) 7.9 H [place] # 1.2 H Baso # 0.2 H Seg Neutrophils # 10.4 H Carbon Dioxide 20 L Creatinine 0.5 L Magnesium Albumin 3.6 L Urine WBC (Auto) 121.0 H 11/27/17 11/27/17 11/28/17 14:06 21:16 00:22 WBC [place] % (Auto) [place] # Baso # Seg Neutrophils # Carbon Dioxide Creatinine Magnesium 5.50 H 5.60 H 5.90 H Albumin Urine WBC (Auto) 11/28/17 11/28/17 11/28/17 05:53 10:58 19:29 WBC [place] % (Auto) [place] # Baso # Seg Neutrophils # Carbon Dioxide Creatinine Magnesium 5.90 H 5.40 H 4.10 H Albumin Urine WBC (Auto) 12/01/17 07:26 WBC 13.9 H [place] % (Auto) [place] # Baso # Seg Neutrophils # Carbon Dioxide Creatinine Magnesium Albumin Urine WBC (Auto) <ANNY ÁLVAREZ D - Last Filed: 12/04/17 08:06> Assessment and Plan IUP@26w2d (WILLIE 03/10/2018) Update T&S today - Patient Problems (1) 26 weeks gestation of Current Visit: Yes Status: Acute (2) premature rupture of membranes Onset Date: 11/26/17 Current Visit: Yes Status: Acute Qualifiers: PROM onset of labor timing: unspecified duration between rupture of membranes and onset of labor Qualified Code(s): O42.919 - premature rupture of membranes, unspecified as to length of time between rupture and onset of labor, unspecified trimester Plan to address problem: No obvious s/s chorioamnionitis (3) labor in second trimester Onset Date: ~11/28/17 Current Visit: Yes Status: Acute Qualifiers: Fetus number: single or unspecified fetus Plan to address problem: stable (4) delivery delivered Current Visit: No Status: Chronic (5) Breech presentation Current Visit: Yes Status: Acute Qualifiers: Fetus number: single or unspecified fetus Qualified Code(s): O32.1XX0 - Maternal care for breech presentation, not applicable or unspecified Objective - Vital Signs Vital Signs: Vital Signs - 12hr 12/03/17 12/04/17 12/04/17 20:30 00:49 05:06 Temperature Pulse Rate 102 H 91 H 79 Respiratory Rate Blood Pressure 109/64 101/59 109/61 Blood Pressure [Right] 12/04/17 12/04/17 05:23 07:31 Temperature 98.1 F 98.7 F Pulse Rate 79 Respiratory 18 Rate Blood Pressure Blood Pressure 109/61 [Right] - Exam Uterus: Present: tenderness, fundal height above umbilicus - Labs Labs: Abnormal Labs 11/26/17 11/26/17 11/26/17 23:38 23:38 23:38 WBC 15.4 H [place] % (Auto) 7.9 H [place] # 1.2 H Baso # 0.2 H Seg Neutrophils # 10.4 H Carbon Dioxide 20 L Creatinine 0.5 L Magnesium Albumin 3.6 L Urine WBC (Auto) 121.0 H 11/27/17 11/27/17 11/28/17 14:06 21:16 00:22 WBC [place] % (Auto) [place] # Baso # Seg Neutrophils # Carbon Dioxide Creatinine Magnesium 5.50 H 5.60 H 5.90 H Albumin Urine WBC (Auto) 11/28/17 11/28/17 11/28/17 05:53 10:58 19:29 WBC [place] % (Auto) [place] # Baso # Seg Neutrophils # Carbon Dioxide Creatinine Magnesium 5.90 H 5.40 H 4.10 H Albumin Urine WBC (Auto) 12/01/17 07:26 WBC 13.9 H [place] % (Auto) [place] # Baso # Seg Neutrophils # Carbon Dioxide Creatinine Magnesium Albumin Urine WBC (Auto)
--- NOTE | 2017-12-04 08:27 | Event Note ---
Date: 12/04/17 States SCD's are too hot and does not want to wear them, will change to Foot pumps for patient comfort.
[2017-12-04] MEDS: PRENATAL VITAMIN PO SCH (09:35)
[2017-12-04] MEDS: COLACE PO SCH (09:35)
--- NOTE | 2017-12-05 07:24 | Progress Note ---
Assessment and Plan Patient resting, c/o of frequent b/p checks and inconvenient IV placement in left inner wrist. reviewed standard of care. denies abd pain/tenderness/cramping /ctx. reports + FM. denies depression or anxiety. A; 1. IUP at 26w4d weeks gestation 2. PROM 3. Prior CS x 2 Rec per [facility]: 1) Continue inpatient expectant management 2) Complete latency antibiotics; 3) Twice weekly testing beginning at 27-28 weeks gestation Growth scan q 3 weeks (last one 11/26/17) 4) Indication for delivery : 34 weeks, labor , chorioamnionitis, or non- reassuring maternal or evaluation 5) BMZ is complete - Patient Problems (1) premature rupture of membranes Onset Date: 11/26/17 Current Visit: Yes Status: Acute Qualifiers: PROM onset of labor timing: unspecified duration between rupture of membranes and onset of labor Qualified Code(s): O42.919 - premature rupture of membranes, unspecified as to length of time between rupture and onset of labor, unspecified trimester (2) History of delivery, currently Current Visit: No Status: Acute (3) 25 years of age Current Visit: Yes Status: Acute (4) Breech presentation Current Visit: Yes Status: Acute Qualifiers: Fetus number: single or unspecified fetus Qualified Code(s): O32.1XX0 - Maternal care for breech presentation, not applicable or unspecified Subjective - Subjective Date of service: 12/05/17 Principal diagnosis: IUP @ 26w4d PPROM Patient reports: loss of fluid, movement normal, no new complaints, no vaginal bleeding, no contractions Objective - Vital Signs Vital Signs: Vital Signs - 12hr 12/04/17 12/04/17 12/04/17 20:36 20:44 23:59 Temperature 98.8 F Pulse Rate 86 86 78 Respiratory 18 Rate Blood Pressure 105/60 100/55 Blood Pressure 105/60 [Right] O2 Sat by Pulse 97 97 99 Oximetry 12/05/17 12/05/17 12/05/17 00:00 03:14 03:19 Temperature 98 F Pulse Rate 91 H 79 Respiratory 18 Rate Blood Pressure Blood Pressure [Right] O2 Sat by Pulse 99 98 Oximetry 12/05/17 12/05/17 12/05/17 03:24 03:29 03:34 Temperature Pulse Rate 79 79 81 Respiratory Rate Blood Pressure Blood Pressure [Right] O2 Sat by Pulse 98 98 99 Oximetry 12/05/17 12/05/17 12/05/17 03:39 03:44 03:49 Temperature Pulse Rate 84 71 79 Respiratory Rate Blood Pressure Blood Pressure [Right] O2 Sat by Pulse 98 97 98 Oximetry 12/05/17 12/05/17 04:54 05:00 Temperature 98.5 F Pulse Rate 77 Respiratory 18 Rate Blood Pressure 105/58 Blood Pressure [Right] O2 Sat by Pulse 97 Oximetry - Exam Cardiovascular: Regular rate Lungs: Clear to auscultation, Normal air movement Abdomen: Present: normal appearance, soft Vulva: both: normal Uterus: Present: normal FHR: auscultation normal, category 1 Uterine Contraction Monitor Mode: External Uterine Contraction Pattern: Absent Uterine Tone Measurement Phase: Resting Extremities: normal - Labs Labs: Abnormal Labs 11/26/17 11/26/17 11/26/17 23:38 23:38 23:38 WBC 15.4 H [place] % (Auto) 7.9 H [place] # 1.2 H Baso # 0.2 H Seg Neutrophils # 10.4 H Carbon Dioxide 20 L Creatinine 0.5 L Magnesium Albumin 3.6 L Urine WBC (Auto) 121.0 H 11/27/17 11/27/17 11/28/17 14:06 21:16 00:22 WBC [place] % (Auto) [place] # Baso # Seg Neutrophils # Carbon Dioxide Creatinine Magnesium 5.50 H 5.60 H 5.90 H Albumin Urine WBC (Auto) 11/28/17 11/28/17 11/28/17 05:53 10:58 19:29 WBC [place] % (Auto) [place] # Baso # Seg Neutrophils # Carbon Dioxide Creatinine Magnesium 5.90 H 5.40 H 4.10 H Albumin Urine WBC (Auto) 12/01/17 07:26 WBC 13.9 H [place] % (Auto) [place] # Baso # Seg Neutrophils # Carbon Dioxide Creatinine Magnesium Albumin Urine WBC (Auto) Laboratory Results - last 24 hr 12/04/17 08:12 Blood Type O POSITIVE Antibody Screen Negative
[2017-12-05] MEDS: LACTATED RINGERS 1,000 ML IV SCH ×2 (08:59→21:05)
[2017-12-05] MEDS: COLACE PO SCH (11:27)
[2017-12-05] MEDS: PRENATAL VITAMIN PO SCH (11:27)
--- NOTE | 2017-12-05 14:45 | Progress Note ---
Assessment and Plan A; 1. IUP at 26 4/7 weeks gestation 2. PROM 3. Prior CS x 2 Rec: 1) Continue inpatient expectant management 2) Twice weekly testing beginning at 27-28 weeks gestation 3) Growth scan q 3 weeks 4) Indication for delivery : 34 weeks, labor , chorioamnionitis, or non- reassuring maternal or evaluation Subjective - Subjective Principal diagnosis: IUP @ 26w4d PPROM Interval history: No complaints. Denies contractions. Good movement. Patient reports: loss of fluid, movement normal, no new complaints, no vaginal bleeding, no contractions Objective - Vital Signs Vital Signs: Vital Signs - 12hr 12/05/17 12/05/17 12/05/17 03:14 03:19 03:24 Temperature Pulse Rate 91 H 79 79 Respiratory Rate Blood Pressure Blood Pressure [Right] O2 Sat by Pulse 99 98 98 Oximetry 12/05/17 12/05/17 12/05/17 03:29 03:34 03:39 Temperature Pulse Rate 79 81 84 Respiratory Rate Blood Pressure Blood Pressure [Right] O2 Sat by Pulse 98 99 98 Oximetry 12/05/17 12/05/17 12/05/17 03:44 03:49 04:54 Temperature Pulse Rate 71 79 77 Respiratory Rate Blood Pressure 105/58 Blood Pressure [Right] O2 Sat by Pulse 97 98 97 Oximetry 12/05/17 12/05/17 12/05/17 05:00 09:00 09:02 Temperature 98.5 F 98.1 F Pulse Rate 74 74 Respiratory 18 16 Rate Blood Pressure 101/60 Blood Pressure 101/60 [Right] O2 Sat by Pulse Oximetry 12/05/17 11:28 Temperature Pulse Rate 80 Respiratory Rate Blood Pressure Blood Pressure [Right] O2 Sat by Pulse 98 Oximetry - Exam Abdomen: Present: soft - Labs Labs: Abnormal Labs 11/26/17 11/26/17 11/26/17 23:38 23:38 23:38 WBC 15.4 H [place] % (Auto) 7.9 H [place] # 1.2 H Baso # 0.2 H Seg Neutrophils # 10.4 H Carbon Dioxide 20 L Creatinine 0.5 L Magnesium Albumin 3.6 L Urine WBC (Auto) 121.0 H 11/27/17 11/27/17 11/28/17 14:06 21:16 00:22 WBC [place] % (Auto) [place] # Baso # Seg Neutrophils # Carbon Dioxide Creatinine Magnesium 5.50 H 5.60 H 5.90 H Albumin Urine WBC (Auto) 11/28/17 11/28/17 11/28/17 05:53 10:58 19:29 WBC [place] % (Auto) [place] # Baso # Seg Neutrophils # Carbon Dioxide Creatinine Magnesium 5.90 H 5.40 H 4.10 H Albumin Urine WBC (Auto) 12/01/17 07:26 WBC 13.9 H [place] % (Auto) [place] # Baso # Seg Neutrophils # Carbon Dioxide Creatinine Magnesium Albumin Urine WBC (Auto)
[2017-12-05] MEDS: ALUM-MAG HYDROX-SIMETH 200-200-20MG/5ML PO PRN (18:07)
--- NOTE | 2017-12-05 23:42 | Event Note ---
Date: 12/05/17 Pt seen and evaluated at 1930pm. Pt inquired about having less frequent monitoring. I advised that for now monitoring will be contineous for now. Pt expressed understanding.
--- NOTE | 2017-12-06 06:47 | Progress Note ---
Assessment and Plan Pt resting No c/o voiced Reports good FM States she had some burning pain on left side of previous c/s scar, this has resolved with rest. Cat 1 FHT No ctx recorded. IUP @ 25w5d woth PPROM; prev. c/s; breech presentation on admission. P : continue POC as noted Begin testing Sunday when pt will be 27w0d to see later today A; 1. IUP at 26w5d weeks gestation 2. PROM 11-26-17 3. Prior CS x 2 Rec per AM[facility]: 1) Continue inpatient expectant management 2) Complete latency antibiotics; 3) Twice weekly testing beginning at 27-28 weeks gestation Growth scan q 3 weeks (last one 11/26/17) 4) Indication for delivery : 34 weeks, labor , chorioamnionitis, or non- reassuring maternal or evaluation 5) BMZ is complete - Patient Problems (1) labor in second trimester Onset Date: ~11/28/17 Current Visit: Yes Status: Acute Qualifiers: Fetus number: single or unspecified fetus (2) premature rupture of membranes Onset Date: 11/26/17 Current Visit: Yes Status: Acute Qualifiers: PROM onset of labor timing: unspecified duration between rupture of membranes and onset of labor Qualified Code(s): O42.919 - premature rupture of membranes, unspecified as to length of time between rupture and onset of labor, unspecified trimester (3) 25 years of age Current Visit: Yes Status: Acute Subjective - Subjective Date of service: 12/06/17 (sleeping No c/o voiced) Principal diagnosis: IUP @ 26w5d PPROM Patient reports: loss of fluid, movement normal, no new complaints, no vaginal bleeding, no contractions Objective - Vital Signs Vital Signs: Vital Signs - 12hr 12/05/17 12/05/17 12/05/17 19:17 19:23 21:05 Temperature 98.6 F 98.7 F Pulse Rate 81 Respiratory 18 18 Rate Blood Pressure 94/50 O2 Sat by Pulse 98 Oximetry 12/05/17 12/05/17 12/05/17 23:48 23:49 23:53 Temperature 98.6 F Pulse Rate 72 79 Respiratory 18 Rate Blood Pressure 86/50 O2 Sat by Pulse 94 98 Oximetry 12/06/17 12/06/1718 04:07 04:08 04:12 Temperature 98.7 F Pulse Rate 91 H 78 Respiratory 20 Rate Blood Pressure 111/57 O2 Sat by Pulse 97 Oximetry - Exam Breasts: deferred Cardiovascular: Regular rate Lungs: Normal air movement Abdomen: Present: normal appearance, soft. Absent: distention, tenderness Uterus: Present: normal FHR: auscultation normal, category 1 Uterine Contraction Monitor Mode: External Uterine Contraction Pattern: Absent Uterine Tone Measurement Phase: Resting Extremities: normal Deep Tendon Reflex Grade: Normal +2 - Labs Labs: Abnormal Labs 11/26/17 11/26/17 11/26/17 23:38 23:38 23:38 WBC 15.4 H [place] % (Auto) 7.9 H [place] # 1.2 H Baso # 0.2 H Seg Neutrophils # 10.4 H Carbon Dioxide 20 L Creatinine 0.5 L Magnesium Albumin 3.6 L Urine WBC (Auto) 121.0 H 11/27/17 11/27/17 11/28/17 14:06 21:16 00:22 WBC [place] % (Auto) [place] # Baso # Seg Neutrophils # Carbon Dioxide Creatinine Magnesium 5.50 H 5.60 H 5.90 H Albumin Urine WBC (Auto) 11/28/17 11/28/17 11/28/17 05:53 10:58 19:29 WBC [place] % (Auto) [place] # Baso # Seg Neutrophils # Carbon Dioxide Creatinine Magnesium 5.90 H 5.40 H 4.10 H Albumin Urine WBC (Auto) 12/01/17 07:26 WBC 13.9 H [place] % (Auto) [place] # Baso # Seg Neutrophils # Carbon Dioxide Creatinine Magnesium Albumin Urine WBC (Auto)
--- NOTE | 2017-12-06 09:49 | Progress Note ---
Assessment and Plan A; 1. IUP @ 26 5/7 weeks gestation 2. PROM 3. Prior CS x 2 4. s/p BMZ , latency antibiotics Rec: 1. Twice weekly testing beginning at 27 -28 weeks gestation 2. delivery at 34 weeks gestation , sooner if indicated 3. complete latency antibiotics Subjective - Subjective Date of service: 12/06/17 Principal diagnosis: IUP @ 26w5d PPROM Interval history: She denies contractions , bleeding , vaginal pressure Patient reports: loss of fluid, movement normal, no new complaints, no vaginal bleeding, no contractions Objective - Vital Signs Vital Signs: Vital Signs - 12hr 12/05/17 12/05/17 12/05/17 23:48 23:49 23:53 Temperature 98.6 F Pulse Rate 72 79 Respiratory 18 Rate Blood Pressure 86/50 Blood Pressure [Right] O2 Sat by Pulse 94 98 Oximetry 12/06/17 12/06/17 12/06/17 04:07 04:08 04:12 Temperature 98.7 F Pulse Rate 91 H 78 Respiratory 20 Rate Blood Pressure 111/57 Blood Pressure [Right] O2 Sat by Pulse 97 Oximetry 12/06/17 12/06/17 12/06/17 07:24 07:25 07:30 Temperature 98.9 F Pulse Rate 44 L 78 81 Respiratory 16 Rate Blood Pressure 107/65 Blood Pressure 107/65 [Right] O2 Sat by Pulse 82 L 98 Oximetry - Exam Narrative Exam: NAD laying in bed Abdomen: Present: normal appearance, soft (no palpable contractions ) FHR: category 1 Uterine Contraction Pattern: Absent Extremities: normal - Labs Labs: Abnormal Labs 11/26/17 11/26/17 11/26/17 23:38 23:38 23:38 WBC 15.4 H [place] % (Auto) 7.9 H [place] # 1.2 H Baso # 0.2 H Seg Neutrophils # 10.4 H Carbon Dioxide 20 L Creatinine 0.5 L Magnesium Albumin 3.6 L Urine WBC (Auto) 121.0 H 11/27/17 11/27/17 11/28/17 14:06 21:16 00:22 WBC [place] % (Auto) [place] # Baso # Seg Neutrophils # Carbon Dioxide Creatinine Magnesium 5.50 H 5.60 H 5.90 H Albumin Urine WBC (Auto) 11/28/17 11/28/17 11/28/17 05:53 10:58 19:29 WBC [place] % (Auto) [place] # Baso # Seg Neutrophils # Carbon Dioxide Creatinine Magnesium 5.90 H 5.40 H 4.10 H Albumin Urine WBC (Auto) 12/01/17 07:26 WBC 13.9 H [place] % (Auto) [place] # Baso # Seg Neutrophils # Carbon Dioxide Creatinine Magnesium Albumin Urine WBC (Auto)
[2017-12-06] MEDS: LACTATED RINGERS 1,000 ML IV SCH ×2 (10:10→21:33)
[2017-12-06] MEDS: COLACE PO SCH (10:13)
[2017-12-06] MEDS: PRENATAL VITAMIN PO SCH (10:13)
[2017-12-06] MEDS: TYLENOL PO PRN (16:37)
--- NOTE | 2017-12-06 17:39 | Progress Note ---
Assessment and Plan A; 1. IUP @ 26 4/7 weeks gestation 2. PROM, no evidence of chorioamnionitis 3. Prior CS x 2 4. s/p BMZ( last dose 11/28) , latency antibiotics Rec: 1. Twice weekly testing beginning at 27 -28 weeks gestation 2. delivery at 34 weeks gestation , sooner if indicated 3. completed latency antibiotics (last dose 12/04) - Patient Problems (1) 26 weeks gestation of Current Visit: Yes Status: Acute (2) premature rupture of membranes Onset Date: 11/26/17 Current Visit: Yes Status: Acute Qualifiers: PROM onset of labor timing: unspecified duration between rupture of membranes and onset of labor Qualified Code(s): O42.919 - premature rupture of membranes, unspecified as to length of time between rupture and onset of labor, unspecified trimester (3) labor in second trimester Onset Date: ~11/28/17 Current Visit: Yes Status: Acute Qualifiers: Fetus number: single or unspecified fetus (4) Maternal care due to uterine scar from other previous surgery Current Visit: Yes Status: Acute (5) Breech presentation Current Visit: Yes Status: Acute Qualifiers: Fetus number: single or unspecified fetus Qualified Code(s): O32.1XX0 - Maternal care for breech presentation, not applicable or unspecified Subjective - Subjective Date of service: 12/06/17 Principal diagnosis: IUP @ 26w4d PPROM Interval history: no complaints, denies contraction or bleeding, no leaking Patient reports: loss of fluid, movement normal, no new complaints, no vaginal bleeding, no contractions Objective - Vital Signs Vital Signs: Vital Signs - 12hr 12/06/17 12/06/17 12/06/17 07:24 07:25 07:30 Temperature 98.9 F Pulse Rate 44 L 78 81 Respiratory 16 Rate Blood Pressure 107/65 Blood Pressure 107/65 [Right] O2 Sat by Pulse 82 L 98 Oximetry 12/06/17 12/06/17 12/06/17 12:04 12:05 12:10 Temperature 98.8 F Pulse Rate 83 80 Respiratory 16 Rate Blood Pressure 114/64 Blood Pressure 114/64 [Right] O2 Sat by Pulse 89 100 100 Oximetry 12/06/17 12/06/17 12/06/17 16:33 16:38 17:25 Temperature 98.7 F Pulse Rate 81 80 99 H Respiratory 20 Rate Blood Pressure 96/53 Blood Pressure 96/53 [Right] O2 Sat by Pulse 98 98 98 Oximetry 12/06/17 17:30 Temperature Pulse Rate 80 Respiratory Rate Blood Pressure Blood Pressure [Right] O2 Sat by Pulse 99 Oximetry - Exam Breasts: deferred Abdomen: Present: soft. Absent: tenderness Uterus: Present: fundal height above umbilicus. Absent: tenderness FHR: category 1 Uterine Contraction Monitor Mode: External Uterine Contraction Pattern: Absent - Labs Labs: Abnormal Labs 11/26/17 11/26/17 11/26/17 23:38 23:38 23:38 WBC 15.4 H [place] % (Auto) 7.9 H [place] # 1.2 H Baso # 0.2 H Seg Neutrophils # 10.4 H Carbon Diox[place] 20 L Creatinine 0.5 L Magnesium Albumin 3.6 L Urine WBC (Auto) 121.0 H 11/27/17 11/27/17 11/28/17 14:06 21:16 00:22 WBC [place] % (Auto) [place] # Baso # Seg Neutrophils # Carbon Dioxide Creatinine Magnesium 5.50 H 5.60 H 5.90 H Albumin Urine WBC (Auto) 11/28/17 11/28/17 11/28/17 05:53 10:58 19:29 WBC [place] % (Auto) [place] # Baso # Seg Neutrophils # Carbon Dioxide Creatinine Magnesium 5.90 H 5.40 H 4.10 H Albumin Urine WBC (Auto) 12/01/17 07:26 WBC 13.9 H [place] % (Auto) [place] # Baso # Seg Neutrophils # Carbon Dioxide Creatinine Magnesium Albumin Urine WBC (Auto)
[2017-12-06] MEDS: ALUM-MAG HYDROX-SIMETH 200-200-20MG/5ML PO PRN (21:29)
--- NOTE | 2017-12-07 07:36 | Progress Note ---
Assessment and Plan pt resting, no complaints. no ctx/cramping, no abd tenderness. FHT CAT 1. VSSAF A; 1. IUP @ 26 5/7 weeks gestation 2. PROM 3. Prior CS x 2 4. s/p BMZ , latency antibiotics Rec per [facility]: 1. Twice weekly testing beginning at 27 -28 weeks gestation 2. delivery at 34 weeks gestation , sooner if indicated 3. complete latency antibiotics - Patient Problems (1) premature rupture of membranes Onset Date: 11/26/17 Current Visit: Yes Status: Acute Qualifiers: PROM onset of labor timing: unspecified duration between rupture of membranes and onset of labor Qualified Code(s): O42.919 - premature rupture of membranes, unspecified as to length of time between rupture and onset of labor, unspecified trimester (2) History of delivery, currently Current Visit: No Status: Acute (3) 25 years of age Current Visit: Yes Status: Acute (4) Breech presentation Current Visit: Yes Status: Acute Qualifiers: Fetus number: single or unspecified fetus Qualified Code(s): O32.1XX0 - Maternal care for breech presentation, not applicable or unspecified Subjective - Subjective Date of service: 12/07/17 Principal diagnosis: IUP @ 26w5d PPROM Patient reports: loss of fluid, movement normal, no new complaints, no vaginal bleeding, no contractions Objective - Vital Signs Vital Signs: Vital Signs - 12hr 12/06/17 12/07/17 12/07/17 21:33 00:27 00:30 Temperature 98.0 F 98.1 F Pulse Rate 75 Respiratory 16 16 Rate Blood Pressure 110/59 12/07/17 12/07/17 12/07/17 02:03 04:56 04:57 Temperature 98.3 F 98.3 F Pulse Rate 87 Respiratory 18 16 Rate Blood Pressure 111/57 - Exam Breasts: normal Cardiovascular: Regular rate Lungs: Clear to auscultation, Normal air movement Abdomen: Present: normal appearance, soft Uterus: Present: normal FHR: auscultation normal, category 1 Uterine Contraction Monitor Mode: External Uterine Contraction Frequency (min): none Uterine Contraction Pattern: Absent Uterine Tone Measurement Phase: Resting Extremities: normal - Labs Labs: Abnormal Labs 11/26/17 11/26/17 11/26/17 23:38 23:38 23:38 WBC 15.4 H [place] % (Auto) 7.9 H [place] # 1.2 H Baso # 0.2 H Seg Neutrophils # 10.4 H Carbon Dioxide 20 L Creatinine 0.5 L Magnesium Albumin 3.6 L Urine WBC (Auto) 121.0 H 11/27/17 11/27/17 11/28/17 14:06 21:16 00:22 WBC [place] % (Auto) [place] # Baso # Seg Neutrophils # Carbon Dioxide Creatinine Magnesium 5.50 H 5.60 H 5.90 H Albumin Urine WBC (Auto) 11/28/17 11/28/17 11/28/17 05:53 10:58 19:29 WBC [place] % (Auto) [place] # Baso # Seg Neutrophils # Carbon Dioxide Creatinine Magnesium 5.90 H 5.40 H 4.10 H Albumin Urine WBC (Auto) 12/01/17 07:26 WBC 13.9 H [place] % (Auto) [place] # Baso # Seg Neutrophils # Carbon Dioxide Creatinine Magnesium Albumin Urine WBC (Auto)
[2017-12-07] MEDS: LACTATED RINGERS 1,000 ML IV SCH (11:15)
[2017-12-07] MEDS: COLACE PO SCH (11:16)
[2017-12-07] MEDS: PRENATAL VITAMIN PO SCH (11:16)
[2017-12-07] MEDS: ALUM-MAG HYDROX-SIMETH 200-200-20MG/5ML PO PRN (16:13)
[2017-12-08] MEDS: LACTATED RINGERS 1,000 ML IV SCH (01:47)
--- NOTE | 2017-12-08 10:28 | Progress Note ---
Assessment and Plan pt resting, no complaints. no ctx/cramping, no abd tenderness. VSSAF. no signs of infection. A; 1. IUP @ 26 6/7 weeks gestation 2. PROM 3. Prior CS x 2 4. s/p BMZ , latency antibiotics Rec per [facility]: 1. Twice weekly testing beginning at 27 -28 weeks gestation (ordered 12/09/17 - BPP/OLAYINKA/[facility]W/Presentation) 2. delivery at 34 weeks gestation , sooner if indicated - Patient Problems (1) premature rupture of membranes Onset Date: 11/26/17 Current Visit: Yes Status: Acute Qualifiers: PROM onset of labor timing: unspecified duration between rupture of membranes and onset of labor Qualified Code(s): O42.919 - premature rupture of membranes, unspecified as to length of time between rupture and onset of labor, unspecified trimester (2) History of delivery, currently Current Visit: No Status: Acute (3) Breech presentation Current Visit: Yes Status: Acute Qualifiers: Fetus number: single or unspecified fetus Qualified Code(s): O32.1XX0 - Maternal care for breech presentation, not applicable or unspecified (4) 26 weeks gestation of Current Visit: Yes Status: Acute Subjective - Subjective Date of service: 12/08/17 Principal diagnosis: IUP @ 26w6d PPROM Patient reports: loss of fluid, movement normal, no new complaints, no vaginal bleeding, no contractions Objective - Vital Signs Vital Signs: Vital Signs - 12hr 12/07/17 12/08/17 12/08/17 23:55 07:15 07:25 Temperature 98.7 F 98.5 F Pulse Rate 75 82 Blood Pressure 110/62 92/54 - Exam Breasts: normal Cardiovascular: Regular rate Lungs: Clear to auscultation, Normal air movement Abdomen: Present: normal appearance, soft Vulva: both: normal Uterus: Present: normal FHR: auscultation normal Uterine Contraction Monitor Mode: External Uterine Contraction Pattern: Absent Uterine Tone Measurement Phase: Resting Extremities: normal - Labs Labs: Abnormal Labs 11/26/17 11/26/17 11/26/17 23:38 23:38 23:38 WBC 15.4 H [place] % (Auto) 7.9 H [place] # 1.2 H Baso # 0.2 H Seg Neutrophils # 10.4 H Carbon Dioxide 20 L Creatinine 0.5 L Magnesium Albumin 3.6 L Urine WBC (Auto) 121.0 H 11/27/17 11/27/17 11/28/17 14:06 21:16 00:22 WBC [place] % (Auto) [place] # Baso # Seg Neutrophils # Carbon Dioxide Creatinine Magnesium 5.50 H 5.60 H 5.90 H Albumin Urine WBC (Auto) 11/28/17 11/28/17 11/28/17 05:53 10:58 19:29 WBC [place] % (Auto) [place] # Baso # Seg Neutrophils # Carbon Dioxide Creatinine Magnesium 5.90 H 5.40 H 4.10 H Albumin Urine WBC (Auto) 12/01/17 07:26 WBC 13.9 H [place] % (Auto) [place] # Baso # Seg Neutrophils # Carbon Dioxide Creatinine Magnesium Albumin Urine WBC (Auto)
--- NOTE | 2017-12-08 10:38 | Progress Note ---
Assessment and Plan A; 1. IUP @ 27 0/7 weeks gestation 2. PROM 3. Prior CS x 2 4. s/p BMZ , latency antibiotics Rec: 1. Twice weekly testing beginning at 27 -28 weeks gestation 2. delivery at 34 weeks gestation , sooner if indicated 3. complete latency antibiotics 4. NST q shift, resume continuous monitoring if the tracing is not Mel , or if she develops contractions or bleeding Subjective - Subjective Date of service: 12/08/17 Principal diagnosis: IUP @ 27 1/7d PPROM Interval history: Continues to have a small amount of leakage denies contractions , bleeding , vaginal pressure Patient reports: loss of fluid, movement normal, no new complaints, no vaginal bleeding, no contractions Objective - Vital Signs Vital Signs: Vital Signs - 12hr 12/07/17 12/08/17 12/08/17 23:55 07:15 07:25 Temperature 98.7 F 98.5 F Pulse Rate 75 82 Blood Pressure 110/62 92/54 - Exam Narrative Exam: NAD laying in bed Uterus: Present: normal (non tender no palpable contractions ) FHR: auscultation normal Uterine Contraction Pattern: Absent Extremities: normal - Labs Labs: Abnormal Labs 11/26/17 11/26/17 11/26/17 23:38 23:38 23:38 WBC 15.4 H [place] % (Auto) 7.9 H [place] # 1.2 H Baso # 0.2 H Seg Neutrophils # 10.4 H Carbon Diox[place] 20 L Creatinine 0.5 L Magnesium Albumin 3.6 L Urine WBC (Auto) 121.0 H 11/27/17 11/27/17 11/28/17 14:06 21:16 00:22 WBC [place] % (Auto) [place] # Baso # Seg Neutrophils # Carbon Dioxide Creatinine Magnesium 5.50 H 5.60 H 5.90 H Albumin Urine WBC (Auto) 11/28/17 11/28/17 11/28/17 05:53 10:58 19:29 WBC [place] % (Auto) [place] # Baso # Seg Neutrophils # Carbon Dioxide Creatinine Magnesium 5.90 H 5.40 H 4.10 H Albumin Urine WBC (Auto) 12/01/17 07:26 WBC 13.9 H [place] % (Auto) [place] # Baso # Seg Neutrophils # Carbon Dioxide Creatinine Magnesium Albumin Urine WBC (Auto)
--- NOTE | 2017-12-09 09:01 | Ultrasound Report ---
FINAL REPORT EXAM: US OB BPP WO NON-STRESS HISTORY: EFW/OLAYINKA/BPP/presentation COMPARISONS: 11/26/2017 FINDINGS: Limited early 3rd trimester grayscale, color Doppler and M-mode ultrasound Single living intrauterine is demonstrated with recorded cardiac activity of 150 beats per minute. Maximum vertical pocket measurement of approximately 1 cm. Biophysical profile score is 6/8. IMPRESSION: Single living intrauterine with biophysical profile score of 6/8 and oligohydramnios, as detailed above.
--- NOTE | 2017-12-09 09:06 | Ultrasound Report ---
FINAL REPORT EXAM: US OB FOLLOW UP HISTORY: EFW/OLAYINKA/BPP/presentation COMPARISONS: 11/26/2017 FINDINGS: Limited early 3rd trimester grayscale, color Doppler and M-mode ultrasound Single living intrauterine is demonstrated with recorded cardiac activity of 150 beats per minute. Maximum vertical pocket measurement of approximately 1 cm. Amniotic fluid index is approximately 2-3 cm. The cervix appears closed and measures approximately 3.4 cm in length. presentation is cephalic. The placenta is posterior fundal, and there is no evidence of previa. Biparietal diameter is 6.5 cm Head circumference is 24.5 cm Abdominal circumference is 21.2 cm Femoral length is 4.7 cm Estimated gestational age based on ultrasound today is 26 weeks 0 days, which is concordant with prior established clinical dating of 27 weeks 0 days. Estimated weight of 853 grams corresponds to the 7th percentile based on clinical dating. IMPRESSION: Single living intrauterine in cephalic presentation with oligohydramnios and size small for dates, as detailed above. The cervix appears closed and no focal placental abnormality is identified. Consider maternal medicine consultation if not already obtained.
--- NOTE | 2017-12-09 09:22 | Progress Note ---
Assessment and Plan pt resting, no complaints. no ctx/cramping, no abd tenderness. VSSAF. no signs of infection. Reviewed u/s findings with Dr. Hensley, no change in plan: NST q shift and toco only if change in status. Patient verbalizes understanding of u/ s results and continuation of plan of care. A; 1. IUP @ 27 0/7 weeks gestation 2. PROM 3. Prior CS x 2 4. s/p BMZ , latency antibiotics 5. u/s 12/09/17 - cephalic, OLAYINKA 2-3cms, BPP 6/8 (2 off for fluid), EFW 853gm, u/ s gestational age 26w0d, EFW 7th% due to lag in [place]. Rec per [facility]: 1. Twice weekly testing beginning at 27 -28 weeks gestation ( next one ordered 12/12/17) 2. u/s EFW in 2 weeks (done 12/09/17) 2. delivery at 34 weeks gestation , sooner if indicated - Patient Problems (1) premature rupture of membranes Onset Date: 11/26/17 Current Visit: Yes Status: Acute Qualifiers: PROM onset of labor timing: unspecified duration between rupture of membranes and onset of labor Qualified Code(s): O42.919 - premature rupture of membranes, unspecified as to length of time between rupture and onset of labor, unspecified trimester (2) History of delivery, currently Current Visit: No Status: Acute (3) 27 weeks gestation of Current Visit: Yes Status: Acute Subjective - Subjective Date of service: 12/09/17 Principal diagnosis: IUP @ 27w0d PPROM Patient reports: loss of fluid, movement normal, no new complaints, no vaginal bleeding, no contractions Objective - Vital Signs Vital Signs: Vital Signs - 12hr 12/08/17 12/09/17 12/09/17 23:00 00:57 01:01 Temperature 98.3 F Pulse Rate 92 H 93 H 93 H Respiratory 18 Rate Blood Pressure 109/71 103/56 Blood Pressure [Left] Blood Pressure 103/56 [Right] 12/09/17 12/09/17 12/09/17 06:12 07:09 07:10 Temperature 98.3 F 98.0 F Pulse Rate 99 H 91 H 91 H Respiratory 18 Rate Blood Pressure 105/56 101/57 Blood Pressure 101/57 [Left] Blood Pressure 105/56 [Right] - Exam Breasts: normal Cardiovascular: Regular rate Lungs: Clear to auscultation, Normal air movement Abdomen: Present: normal appearance, soft Vulva: both: normal Uterus: Present: normal FHR: auscultation normal Uterine Contraction Monitor Mode: External Uterine Tone Measurement Phase: Resting Extremities: normal - Labs Labs: Abnormal Labs 11/26/17 11/26/17 11/26/17 23:38 23:38 23:38 WBC 15.4 H [place] % (Auto) 7.9 H [place] # 1.2 H Baso # 0.2 H Seg Neutrophils # 10.4 H Carbon Dioxide 20 L Creatinine 0.5 L Magnesium Albumin 3.6 L Urine WBC (Auto) 121.0 H 11/27/17 11/27/17 11/28/17 14:06 21:16 00:22 WBC [place] % (Auto) [place] # Baso # Seg Neutrophils # Carbon Dioxide Creatinine Magnesium 5.50 H 5.60 H 5.90 H Albumin Urine WBC (Auto) 11/28/17 11/28/17 11/28/17 05:53 10:58 19:29 WBC [place] % (Auto) [place] # Baso # Seg Neutrophils # Carbon Dioxide Creatinine Magnesium 5.90 H 5.40 H 4.10 H Albumin Urine WBC (Auto) 12/01/17 07:26 WBC 13.9 H [place] % (Auto) [place] # Baso # Seg Neutrophils # Carbon Dioxide Creatinine Magnesium Albumin Urine WBC (Auto)
--- NOTE | 2017-12-09 09:57 | Event Note ---
Date: 12/09/17 Will con't the following recommendations as per MFM. Agree with MW exam and note. A; 1. IUP @ 27 0/7 weeks gestation 2. PROM 3. Prior CS x 2 4. s/p BMZ , latency antibiotics Rec: 1. Twice weekly testing beginning at 27 -28 weeks gestation 2. delivery at 34 weeks gestation , sooner if indicated 3. complete latency antibiotics 4. NST q shift, resume continuous monitoring if the tracing is not Mel , or if she develops contractions or bleeding
--- NOTE | 2017-12-09 09:59 | Event Note ---
Date: 12/09/17 CINDY Spoke with Laurie regarding the [place] .The overall EFW was at the 7th percentile.The biometry was reviewed HC/BPD are >10th percentile, AC is at the 10th percentile .[place] is at the 7th percentile. Reevaluate the growth in 2 weeks Continue twice weekly testing and NST q shift
[2017-12-09] MEDS: COLACE PO SCH ×2 (10:00→10:07)
[2017-12-09] MEDS: PRENATAL VITAMIN PO SCH ×2 (10:00→10:06)
[2017-12-09] MEDS: TYLENOL PO PRN (14:14)
--- NOTE | 2017-12-10 06:17 | Progress Note ---
Assessment and Plan Pt sleeping Easily awakened. No c/o voiced VSS afebrile. Pt denies any further spotting when voiding Assessment and plan as noted. Will consult with . A; 1. IUP @ 27 1/7 weeks gestation 2. PROM 3. Prior CS x 2 4. s/p BMZ , latency antibiotics 5. u/s 12/09/17 - cephalic, OLAYINKA 2-3cms, BPP 6/8 (2 off for fluid), EFW 853gm, u/ s gestational age 26w0d, EFW 7th% due to lag in [place]. Rec per [facility]: 1. Twice weekly testing beginning at 27 -28 weeks gestation ( next one ordered 12/12/17) 2. u/s EFW in 2 weeks (done 12/09/17) 2. delivery at 34 weeks gestation , sooner if indicated - Patient Problems (1) labor in second trimester Onset Date: ~11/28/17 Current Visit: Yes Status: Acute Qualifiers: Fetus number: single or unspecified fetus (2) premature rupture of membranes Onset Date: 11/26/17 Current Visit: Yes Status: Acute Qualifiers: PROM onset of labor timing: unspecified duration between rupture of membranes and onset of labor Qualified Code(s): O42.919 - premature rupture of membranes, unspecified as to length of time between rupture and onset of labor, unspecified trimester Subjective - Subjective Date of service: 12/10/17 (resting No c/o voiced) Principal diagnosis: IUP @ 27w1d PPROM Patient reports: loss of fluid, movement normal, no new complaints, no vaginal bleeding, no contractions Objective - Vital Signs Vital Signs: Vital Signs - 12hr 12/09/17 12/09/17 12/09/17 19:44 19:47 19:48 Temperature 98.3 F Pulse Rate 87 85 Respiratory 16 Rate Blood Pressure 110/63 O2 Sat by Pulse 99 Oximetry 12/09/17 12/09/17 12/10/17 22:12 23:52 00:36 Temperature 98.6 F 98.1 F 98.2 F Pulse Rate Respiratory 16 16 14 Rate Blood Pressure O2 Sat by Pulse Oximetry 12/10/17 12/10/17 03:33 06:11 Temperature 98.1 F 98.2 F Pulse Rate Respiratory 16 16 Rate Blood Pressure O2 Sat by Pulse Oximetry - Exam Breasts: deferred Cardiovascular: Regular rate Lungs: Normal air movement Abdomen: Present: normal appearance, soft. Absent: distention, tenderness Uterus: Present: normal FHR: category 1 Uterine Contraction Monitor Mode: External (NST reactive Q 8 hrs) Uterine Tone Measurement Phase: Resting Extremities: normal Deep Tendon Reflex Grade: Normal +2 - Labs Labs: Abnormal Labs 11/26/17 11/26/17 11/26/17 23:38 23:38 23:38 WBC 15.4 H [place] % (Auto) 7.9 H [place] # 1.2 H Baso # 0.2 H Seg Neutrophils # 10.4 H Carbon Dioxide 20 L Creatinine 0.5 L Magnesium Albumin 3.6 L Urine WBC (Auto) 121.0 H 11/27/17 11/27/17 11/28/17 14:06 21:16 00:22 WBC [place] % (Auto) [place] # Baso # Seg Neutrophils # Carbon Dioxide Creatinine Magnesium 5.50 H 5.60 H 5.90 H Albumin Urine WBC (Auto) 11/28/17 11/28/17 11/28/17 05:53 10:58 19:29 WBC [place] % (Auto) [place] # Baso # Seg Neutrophils # Carbon Dioxide Creatinine Magnesium 5.90 H 5.40 H 4.10 H Albumin Urine WBC (Auto) 12/01/17 07:26 WBC 13.9 H [place] % (Auto) [place] # Baso # Seg Neutrophils # Carbon Dioxide Creatinine Magnesium Albumin Urine WBC (Auto)
[2017-12-10] MEDS: PRENATAL VITAMIN PO SCH (10:15)
[2017-12-10] MEDS: COLACE PO SCH (10:15)
--- NOTE | 2017-12-10 12:52 | Progress Note ---
Assessment and Plan 1. PPROM at 27 1/7 weeks' 2. IUGR 3. Previous C/S x 2 1. Continue expectant management 2. Start twice weekly surveillance at 27 weeks' 3. Add umbilical artery doppler velocimetry to surveillance 4. EFW q 2 weeks Subjective - Subjective Date of service: 12/10/17 (Feeling well, fetus active; denied contractions) Principal diagnosis: IUP @ 27w1d PPROM Patient reports: loss of fluid, movement normal, no new complaints, no vaginal bleeding, no contractions Objective - Vital Signs Vital Signs: Vital Signs - 12hr 12/10/17 12/10/17 12/10/17 03:33 06:11 09:15 Temperature 98.1 F 98.2 F Pulse Rate 86 Respiratory 16 16 Rate Blood Pressure O2 Sat by Pulse 98 Oximetry 12/10/17 09:16 Temperature Pulse Rate 88 Respiratory Rate Blood Pressure 97/57 O2 Sat by Pulse Oximetry - Exam Narrative Exam: Abd soft, notender; EFW reportedly at 7th%ile, c/w IUGR - Labs Labs: Abnormal Labs 11/26/17 11/26/17 11/26/17 23:38 23:38 23:38 WBC 15.4 H [place] % (Auto) 7.9 H [place] # 1.2 H Baso # 0.2 H Seg Neutrophils # 10.4 H Carbon Dioxide 20 L Creatinine 0.5 L Magnesium Albumin 3.6 L Urine WBC (Auto) 121.0 H 11/27/17 11/27/17 11/28/17 14:06 21:16 00:22 WBC [place] % (Auto) [place] # Baso # Seg Neutrophils # Carbon Dioxide Creatinine Magnesium 5.50 H 5.60 H 5.90 H Albumin Urine WBC (Auto) 11/28/17 11/28/17 11/28/17 05:53 10:58 19:29 WBC [place] % (Auto) [place] # Baso # Seg Neutrophils # Carbon Dioxide Creatinine Magnesium 5.90 H 5.40 H 4.10 H Albumin Urine WBC (Auto) 12/01/17 07:26 WBC 13.9 H [place] % (Auto) [place] # Baso # Seg Neutrophils # Carbon Dioxide Creatinine Magnesium Albumin Urine WBC (Auto)
--- NOTE | 2017-12-11 06:46 | Progress Note ---
Assessment and Plan Pt in good spirits No c/o voiced this AM Pt does report some cramping Reports good FM IUP @ 27w2d PPROM P: as per [facility] recommendations. consulted. A: 1. PPROM at 27 2/7 weeks' 2. IUGR 3. Previous C/S x 2 4. completed Steroids and ABX P: 1. Continue expectant management 2. Start twice weekly surveillance at 27 weeks' 3. Add umbilical artery doppler velocimetry to surveillance ( added to BPP tomorrow 12-12-17) 4. EFW q 2 weeks - Patient Problems (1) labor in second trimester Onset Date: ~11/28/17 Current Visit: Yes Status: Acute Qualifiers: Fetus number: single or unspecified fetus (2) premature rupture of membranes Onset Date: 11/26/17 Current Visit: Yes Status: Acute Qualifiers: PROM onset of labor timing: unspecified duration between rupture of membranes and onset of labor Qualified Code(s): O42.919 - premature rupture of membranes, unspecified as to length of time between rupture and onset of labor, unspecified trimester Subjective - Subjective Date of service: 12/11/17 (pt states she had a run of ctx yesterday but denies any this AM) Principal diagnosis: IUP @ 27w2d PPROM Patient reports: loss of fluid, movement normal, no new complaints, no vaginal bleeding, no contractions Objective - Vital Signs Vital Signs: Vital Signs - 12hr 12/10/17 12/11/17 12/11/17 20:50 00:48 03:00 Temperature 98.4 F 97.0 F L 98.6 F Pulse Rate 85 96 H Respiratory 18 18 Rate Blood Pressure 105/64 104/68 Blood Pressure [Left] Blood Pressure 104/64 104/68 [Right] O2 Sat by Pulse 98 97 Oximetry 12/11/17 05:25 Temperature 98.6 F Pulse Rate 94 H Respiratory 18 Rate Blood Pressure 108/59 Blood Pressure 108/59 [Left] Blood Pressure [Right] O2 Sat by Pulse 98 Oximetry - Exam Abdomen: Present: normal appearance, soft. Absent: distention, tenderness Uterus: Present: normal FHR: auscultation normal Uterine Contraction Monitor Mode: External (NST reactive after midnight) Uterine Contraction Pattern: Absent Uterine Tone Measurement Phase: Resting Extremities: normal Deep Tendon Reflex Grade: Normal +2 - Labs Labs: Abnormal Labs 11/26/17 11/26/17 11/26/17 23:38 23:38 23:38 WBC 15.4 H [place] % (Auto) 7.9 H [place] # 1.2 H Baso # 0.2 H Seg Neutrophils # 10.4 H Carbon Dioxide 20 L Creatinine 0.5 L Magnesium Albumin 3.6 L Urine WBC (Auto) 121.0 H 11/27/17 11/27/17 11/28/17 14:06 21:16 00:22 WBC [place] % (Auto) [place] # Baso # Seg Neutrophils # Carbon Dioxide Creatinine Magnesium 5.50 H 5.60 H 5.90 H Albumin Urine WBC (Auto) 11/28/17 11/28/17 11/28/17 05:53 10:58 19:29 WBC [place] % (Auto) [place] # Baso # Seg Neutrophils # Carbon Dioxide Creatinine Magnesium 5.90 H 5.40 H 4.10 H Albumin Urine WBC (Auto) 12/01/17 07:26 WBC 13.9 H [place] % (Auto) [place] # Baso # Seg Neutrophils # Carbon Dioxide Creatinine Magnesium Albumin Urine WBC (Auto)
--- NOTE | 2017-12-11 08:05 | Event Note ---
Date: 12/11/17 Agree with MW exam and noted. Will cont recommendations as outlined by m. Sono on 12/09/17 shows IUGR with growth in 7th %tile. A; 1. IUP @ 27 2/7 weeks gestation 2. PROM 3. Prior CS x 2 4. s/p BMZ , latency antibiotics 5. u/s 12/09/17 - cephalic, OLAYINKA 2-3cms, BPP 6/8 (2 off for fluid), EFW 853gm, u/ s gestational age 26w0d, EFW 7th% due to lag in [place]. Rec per [facility]: 1. Twice weekly testing beginning at 27 -28 weeks gestation ( next one ordered 12/12/17) 2. u/s EFW in 2 weeks (done 12/09/17) 2. delivery at 34 weeks gestation , sooner if indicated
[2017-12-11] MEDS: COLACE PO SCH (10:18)
[2017-12-11] MEDS: PRENATAL VITAMIN PO SCH (10:19)
--- NOTE | 2017-12-12 07:28 | Progress Note ---
Assessment and Plan Pt resting, no complaints. reports occasional ctx over night but states very infrequent. No abd tenderness, fluid clear and odorless. VSSAF. u/s today for BPP and dopplers. Continue present management. A: 1. PPROM at 27 3/7 weeks' 2. IUGR 3. Previous C/S x 2 4. completed Steroids and ABX P: 1. Continue expectant management 2. Start twice weekly surveillance at 27 weeks (Ordered 12/12/17, and Sunday12/16/17) 3. Add umbilical artery doppler velocimetry to surveillance ( added to BPP today 12-12-17 and Sunday) 4. EFW q 2 weeks (last done 12/09) - Patient Problems (1) premature rupture of membranes Onset Date: 11/26/17 Current Visit: Yes Status: Acute Qualifiers: PROM onset of labor timing: unspecified duration between rupture of membranes and onset of labor Qualified Code(s): O42.919 - premature rupture of membranes, unspecified as to length of time between rupture and onset of labor, unspecified trimester (2) History of delivery, currently Current Visit: No Status: Acute (3) 27 weeks gestation of Current Visit: Yes Status: Acute Subjective - Subjective Date of service: 12/12/17 Principal diagnosis: IUP @ 27w3d PPROM Patient reports: loss of fluid, movement normal, no new complaints, no vaginal bleeding, no contractions Objective - Vital Signs Vital Signs: Vital Signs - 12hr 12/12/17 12/12/17 12/12/17 00:16 00:17 04:11 Temperature 98.4 F Pulse Rate 89 89 89 Respiratory 18 Rate Blood Pressure 110/55 91/55 Blood Pressure 110/55 [Left] O2 Sat by Pulse Oximetry 12/12/17 12/12/17 07:18 07:19 Temperature Pulse Rate 106 H 97 H Respiratory Rate Blood Pressure 94/55 Blood Pressure [Left] O2 Sat by Pulse 100 Oximetry - Exam Breasts: normal Cardiovascular: Regular rate Lungs: Clear to auscultation, Normal air movement Abdomen: Present: normal appearance, soft Vulva: both: normal Uterus: Present: normal FHR: auscultation normal Uterine Tone Measurement Phase: Resting Extremities: normal - Labs Labs: Abnormal Labs 11/26/17 11/26/17 11/26/17 23:38 23:38 23:38 WBC 15.4 H [place] % (Auto) 7.9 H [place] # 1.2 H Baso # 0.2 H Seg Neutrophils # 10.4 H Carbon Dioxide 20 L Creatinine 0.5 L Magnesium Albumin 3.6 L Urine WBC (Auto) 121.0 H 11/27/17 11/27/17 11/28/17 14:06 21:16 00:22 WBC [place] % (Auto) [place] # Baso # Seg Neutrophils # Carbon Dioxide Creatinine Magnesium 5.50 H 5.60 H 5.90 H Albumin Urine WBC (Auto) 11/28/17 11/28/17 11/28/17 05:53 10:58 19:29 WBC [place] % (Auto) [place] # Baso # Seg Neutrophils # Carbon Dioxide Creatinine Magnesium 5.90 H 5.40 H 4.10 H Albumin Urine WBC (Auto) 12/01/17 07:26 WBC 13.9 H [place] % (Auto) [place] # Baso # Seg Neutrophils # Carbon Dioxide Creatinine Magnesium Albumin Urine WBC (Auto)
--- NOTE | 2017-12-12 11:33 | Ultrasound Report ---
ULTRASOUND BIOPHYSICAL PROFILE: History: well-being Technique: Transabdominal ultrasound with Doppler interrogation. 2 - breathing movements 2 - movements 2 - posture and tone 0 - Qualitative amniotic fluid volume 6 - TOTAL SCORE OF POSSIBLE 8 Heart Rate (bpm) 152
--- NOTE | 2017-12-12 11:33 | Ultrasound Report ---
ULTRASOUND OB LIMITED History: well being Technique: Transabdominal ultrasound with Doppler interrogation. Gestation: Single Position: Cephalic Amniotic Fluid: Decreased OLAYINKA = 3.6 cm Heart Rate: 149 BPM
--- NOTE | 2017-12-12 11:34 | Ultrasound Report ---
ULTRASOUND OB VELOCIMETRY UMBILICAL ARTERY HISTORY: well being. TECHNIQUE: Transabdominal ultrasound. Spectral Doppler interrogation was performed on 3 segments of the umbilical cord. FINDINGS: heart rate measures 138 beats per minute. The spectral waveforms are normal and persistent. No evidence for loss or reversal of end-diastolic flow. The resistive index average measures 0.55. The systolic/diastolic ratio average measures 2.22. IMPRESSION: Umbilical cord Doppler within normal limits.
[2017-12-12] MEDS: PRENATAL VITAMIN PO SCH (14:21)
[2017-12-12] MEDS: TYLENOL PO PRN (14:21)
[2017-12-12] MEDS: COLACE PO SCH (14:21)
[2017-12-13 05:16] LABS: Basophils # (Auto) 0.2 K/mm3 (0.0-0.1); Basophils % (Auto) 1.1 % (0.0-1.8); Eosinophils # (Auto) 0.1 K/mm3 (0.0-0.4); Eosinophils % (Auto) 0.9 % (0.0-4.3); Hematocrit 32.4 % (30.3-42.9); Hemoglobin 10.7 gm/dl (10.1-14.3); Lymphocytes # (Auto) 2.9 K/mm3 (1.2-5.4); Lymphocytes % (Auto) 20.9 % (13.4-35.0); Mean Corpuscular HGB Conc 33 % (30-34); Mean Corpuscular Hemoglobin 27 pg (28-32); Mean Corpuscular Volume 83 fl (79-97); Monocytes # (Auto) 1.1 K/mm3 (0.0-0.8); Monocytes % (Auto) 8.2 % (0.0-7.3); Platelet Count 258 K/mm3 (140-440); Red Blood Count 3.91 M/mm3 (3.65-5.03); Red Cell Distribution Width 13.2 % (13.2-15.2)
--- NOTE | 2017-12-13 06:03 | Progress Note ---
Assessment and Plan pt sleeping soundly Asking about results of studies done yesterday Gave pt that information. Reassuring testing. Pt does report occasional cramps and has had a smear of blood on her pad after a void. She does report good FM. CBC & T&S ordered for today to update. Will consult with A: 1. PPROM at 27 4/7 weeks 2. IUGR 3. Previous C/S x 2 4. completed Steroids and ABX P: 1. Continue expectant management 2. Start twice weekly surveillance at 27 weeks (Ordered Sunday12/16/17) 3. Add umbilical artery doppler velocimetry to surveillance ( added to BPP Sunday) 4. EFW q 2 weeks (last done 12/09) - Patient Problems (1) labor in second trimester Onset Date: ~11/28/17 Current Visit: Yes Status: Acute Qualifiers: Fetus number: single or unspecified fetus (2) premature rupture of membranes Onset Date: 11/26/17 Current Visit: Yes Status: Acute Qualifiers: PROM onset of labor timing: unspecified duration between rupture of membranes and onset of labor Qualified Code(s): O42.919 - premature rupture of membranes, unspecified as to length of time between rupture and onset of labor, unspecified trimester Subjective - Subjective Date of service: 12/13/17 (smear of blood noted on pad after a void) Principal diagnosis: IUP @ 27w4d PPROM Patient reports: loss of fluid, movement normal, no new complaints, no vaginal bleeding, no contractions Objective - Vital Signs Vital Signs: Vital Signs - 12hr 12/12/17 12/12/17 12/13/17 20:01 23:53 00:56 Temperature 98.5 F 98.7 F Pulse Rate 86 Respiratory 18 Rate Blood Pressure 108/59 12/13/17 04:57 Temperature 97.7 F Pulse Rate Respiratory 16 Rate Blood Pressure - Exam Breasts: deferred Cardiovascular: Regular rate Lungs: Normal air movement Abdomen: Present: normal appearance, soft. Absent: distention, tenderness Uterus: Present: normal FHR: auscultation normal (NST reactive Will be done again @ 0700) Uterine Contraction Pattern: Absent Uterine Tone Measurement Phase: Resting Extremities: normal Deep Tendon Reflex Grade: Normal +2 - Labs Labs: Abnormal Labs 11/26/17 11/26/17 11/26/17 23:38 23:38 23:38 WBC 15.4 H MCH [place] % (Auto) 7.9 H [place] # 1.2 H Baso # 0.2 H Seg Neutrophils # 10.4 H Carbon Dioxide 20 L Creatinine 0.5 L Magnesium Albumin 3.6 L Urine WBC (Auto) 121.0 H 11/27/17 11/27/17 11/28/17 14:06 21:16 00:22 WBC MCH [place] % (Auto) [place] # Baso # Seg Neutrophils # Carbon Dioxide Creatinine Magnesium 5.50 H 5.60 H 5.90 H Albumin Urine WBC (Auto) 11/28/17 11/28/17 11/28/17 05:53 10:58 19:29 WBC MCH [place] % (Auto) [place] # Baso # Seg Neutrophils # Carbon Dioxide Creatinine Magnesium 5.90 H 5.40 H 4.10 H Albumin Urine WBC (Auto) 12/01/17 12/13/17 07:26 04:52 WBC 13.9 H 13.8 H MCH 27 L [place] % (Auto) 8.2 H [place] # 1.1 H Baso # 0.2 H Seg Neutrophils # 9.5 H Carbon Dioxide Creatinine Magnesium Albumin Urine WBC (Auto) Laboratory Results - last 24 hr 12/13/17 04:52 WBC 13.8 H RBC 3.91 Hgb 10.7 Hct 32.4 MCV 83 MCH 27 L MCHC 33 RDW 13.2 Plt Count 258 Lymph % (Auto) 20.9 [place] % (Auto) 8.2 H Eos % (Auto) 0.9 Baso % (Auto) 1.1 Lymph # 2.9 [place] # 1.1 H Eos # 0.1 Baso # 0.2 H Seg Neutrophils % 68.9 Seg Neutrophils # 9.5 H
--- NOTE | 2017-12-13 08:12 | Progress Note ---
Assessment and Plan A: 1. IUP at 27 4/7 weeks 2. PROM 3. Previous C/S x 2 4. EFW 7th ( lagging [place]) P: 1. Twice weekly testing Growth scan q2 weeks 2. Monitor for labor , distress 3. delivery at 34 weeks , sooner if indicated Subjective - Subjective Date of service: 12/13/17 Principal diagnosis: IUP @ 27w4d PPROM Interval history: reports a small amount of spotting and leaking Patient reports: loss of fluid, movement normal, no new complaints, no vaginal bleeding, no contractions Objective - Vital Signs Vital Signs: Vital Signs - 12hr 12/12/17 12/13/17 12/13/17 23:53 00:56 04:57 Temperature 98.7 F 97.7 F Pulse Rate 86 Respiratory 18 16 Rate Blood Pressure 108/59 - Exam Narrative Exam: NAD Abdomen: Present: normal appearance, soft FHR: category 1 Uterine Contraction Pattern: Absent - Labs Labs: Abnormal Labs 11/26/17 11/26/17 11/26/17 23:38 23:38 23:38 WBC 15.4 H MCH [place] % (Auto) 7.9 H [place] # 1.2 H Baso # 0.2 H Seg Neutrophils # 10.4 H Carbon Dioxide 20 L Creatinine 0.5 L Magnesium Albumin 3.6 L Urine WBC (Auto) 121.0 H 11/27/17 11/27/17 11/28/17 14:06 21:16 00:22 WBC MCH [place] % (Auto) [place] # Baso # Seg Neutrophils # Carbon Dioxide Creatinine Magnesium 5.50 H 5.60 H 5.90 H Albumin Urine WBC (Auto) 11/28/17 11/28/17 11/28/17 05:53 10:58 19:29 WBC MCH [place] % (Auto) [place] # Baso # Seg Neutrophils # Carbon Dioxide Creatinine Magnesium 5.90 H 5.40 H 4.10 H Albumin Urine WBC (Auto) 12/01/17 12/13/17 07:26 04:52 WBC 13.9 H 13.8 H MCH 27 L [place] % (Auto) 8.2 H [place] # 1.1 H Baso # 0.2 H Seg Neutrophils # 9.5 H Carbon Dioxide Creatinine Magnesium Albumin Urine WBC (Auto) Laboratory Results - last 24 hr 12/13/17 12/13/17 04:52 04:57 WBC 13.8 H RBC 3.91 Hgb 10.7 Hct 32.4 MCV 83 MCH 27 L MCHC 33 RDW 13.2 Plt Count 258 Lymph % (Auto) 20.9 [place] % (Auto) 8.2 H Eos % (Auto) 0.9 Baso % (Auto) 1.1 Lymph # 2.9 [place] # 1.1 H Eos # 0.1 Baso # 0.2 H Seg Neutrophils % 68.9 Seg Neutrophils # 9.5 H Blood Type O POSITIVE Antibody Screen Negative
[2017-12-13] MEDS: PRENATAL VITAMIN PO SCH (09:39)
[2017-12-13] MEDS: COLACE PO SCH (09:39)
--- NOTE | 2017-12-13 12:08 | Event Note ---
Date: 12/13/17 (pt c/o intense pain in back and lower abdomen) made aware Pt checked by Charge Nurse Pt 8 cm dilated Anticipate delivery
[2017-12-13] MEDS ORDERED: PITOCin/NS 20 UNIT/1000ML DRIP 20,000 MILLIUNITS/1,000 ML BAG IV ONE (12:11)
[2017-12-13] MEDS ORDERED: LACTATED RINGERS 1,000 ML ONE ×2 (12:18→15:44)
[2017-12-13] MEDS ORDERED: PEPCID IV ONE (13:24)
[2017-12-13] MEDS ORDERED: REGLAN IV ONE (13:24)
[2017-12-13] MEDS ORDERED: BICITRA PO ONE (13:24)
--- NOTE | 2017-12-13 13:31 | Anesthesia Consultation ---
Anesthesia Consult and Med Hx Date of service: 12/13/17 - Airway Anesthetic Teeth Evaluation: Good ROM Head & Neck: Adequate Mental/Hyoid Distance: Adequate Mallampati Class: Class II Intubation Access Assessment: Probably Good - Pre-Operative Health Status ASA Pre-Surgery Classification: ASA2 Proposed Anesthetic Plan: Epidural, Spinal - Pulmonary Hx Smoking: No Hx Asthma: No Hx Respiratory Symptoms: No SOB: No COPD: No Hx Pneumonia: No Hx Sleep Apnea: No - Cardiovascular System Hx Hypertension: No Hx Coronary Artery Disease: No Hx Heart Attack/AMI: No Hx Angina: No Hx Percutaneous Transluminal Coronary Angioplasty (PTCA): No Hx Cardia Arrhythmia: No Hx Pacemaker: No Hx Internal Defibrillator: No Hx Valvular Heart Disease: No Hx Heart Murmur: No Hx Peripheral Vascular Disease: No - Central Nervous System Hx Neuromuscular Disorder: No Hx Seizures: No CVA: No Hx Back Pain: No Hx Psychiatric Problems: No - Gastrointestinal Hx Ulcer: No Hx Gastroesophageal Reflux Disease: No - Endocrine Hx Renal Disease: No Hx End Stage Renal Disease: No Hx Liver Disease: No Hx Insulin Dependent Diabetes: No Hx Non-Insulin Dependent Diabetes: No Hx Thyroid Disease: No Hx Hypothyroidism: No Hx Hyperthyroidism: No - Hematic Hx Anemia: No Hx Sickle Cell Disease: No - Other Systems Hx Alcohol Use: No Hx Substance Use: No Hx Cancer: No Hx Obesity: No
[2017-12-13] MEDS ORDERED: PHENERGAN PO PRN (13:32)
[2017-12-13] MEDS ORDERED: NARCAN 0.4 MG/1 ML IV PRN ×2 (13:32→15:57)
[2017-12-13] MEDS ORDERED: ZOFRAN IV PRN (13:32)
[2017-12-13] MEDS ORDERED: PHENERGAN PR PRN (13:32)
[2017-12-13] MEDS ORDERED: DILAUDID IV PRN (13:32)
--- NOTE | 2017-12-13 13:32 | Anesthesia Day of Surgery ---
Anesthesia Day of Surgery - Day of Surgery Patient Examined: Yes Patient H&P Reviewed: Yes Patient is NPO: Yes
[2017-12-13] MEDS ORDERED: TORADOL IV PRN ×2 (13:33→15:57)
[2017-12-13] MEDS ORDERED: WATER FOR IRRIG STERILE IR ONE (13:50)
[2017-12-13] MEDS ORDERED: NACL 0.9% IR ONE (13:50)
[2017-12-13] MEDS ORDERED: XYLOCAINE MPF 2% ONE ×2 (13:53)
[2017-12-13] MEDS ORDERED: SODIUM CHLORIDE FLUSH SYRINGE 10 ML IV NR ×2 (14:00→16:00)
[2017-12-13] MEDS ORDERED: LACTATED RINGERS 1,000 ML IV SCH (14:00)
[2017-12-13] MEDS ORDERED: ANCEF/STERILE WATER 2 GM/20 ML 2 GM/20 ML SYRINGE IV NR (14:00)
[2017-12-13] MEDS ORDERED: PITOCin/NS 20 UNIT/1000ML DRIP 20 UNITS/1,000 ML BAG IV SCH ×2 (14:00→16:00)
[2017-12-13] MEDS ORDERED: NEO SYNEPHRINE/NS Syringe(OR USE) IV ONE ×4 (14:13→15:38)
[2017-12-13] MEDS ORDERED: NACL 0.9% 500 ML 500 ML IV ONE (14:56)
[2017-12-13] MEDS ORDERED: HESPAN 500 ML IV ONE (15:16)
[2017-12-13] MEDS ORDERED: NACL 0.9% 1000 ML 1,000 ML ONE ×2 (15:16→15:44)
[2017-12-13] MEDS ORDERED: ASTRAMORPH PF 10MG/10ML ONE (15:22)
[2017-12-13] MEDS ORDERED: LANSINOH TP PRN (15:57)
[2017-12-13] MEDS ORDERED: TUCKS PAD TP PRN (15:57)
--- NOTE | 2017-12-13 16:08 | Operative Report ---
Operative Report Operative Report: Date of procedure: 12/13/2017 Pre-operative diagnosis: Intrauterine at 27 weeks and 4 days with prolonged premature rupture of membranes in active labor with failure of descent and tachycardia. History of previous section 2 Post-operative diagnosis: Same plus pelvic adhesive disease Procedure name(s): P low transverse section with lysis of adhesions Surgeon: Johnny Polanco MD Supervisor Conditioning Yard: Martina Church certified medical technician assistant Anesthesia: Epidural EBL: 2000 mL patient start receiving portion of blood transfusion while in the operating suite Complications: Laceration of right uterine artery Findings: Dense adhesions between the anterior abdominal wall and omentum also discussed. Adhesions between anterior normal wall and the anterior uterus. Adhesions between the anterior uterus and bladder. Male whose weight and Apgars unknown at time of this dictation Specimen(s): Placenta Indications: The patient started to have severe pain and was found to be in active labor by the nurse initially cervix was 8 cm but rapidly improved2 completely dilated with a +2 to +3 station. Attempted to deliver vaginally but patient had very poor pushing effort due to her fear of pain. Epidural was placed without and from movement and her pushing effort. tachycardia developed and decision was made to move to operative delivery Procedure: The patient was brought to the operating room. Her epidural was dosed without any complications. She was then placed in left lateral tilt. Prepped and draped in the usual sterile manner. After testing for adequate anesthesia level, a Pfannenstiel incision was made through her previous scar. This incision was taken down to the fascia through thick scar. The fascia was then nicked in the midline. This incision was extended out laterally with Barron scissors. The fascia was then sharply and bluntly from the underlying rectus muscles. The rectus muscles were bluntly and sharply abdomen thick adhesions to the omentum. The omental adhesion was taken down sharply and bluntly. This incision was spread vertically with care not to damage the bladder below. The Richard self-retaining tractor was then placed without any difficulty. A transverse incision was made in lower uterine segment above the scarred bladder. This incision was extended laterally with the operators fingers. The amniotic sac was then entered bluntly with the nuclear equipment operator's fingers. The infant was wedged in the patient's pelvis and said had been lifted up into the uterine incision. The infant was delivered from the vertex position. Bulb suction on the mother's abdomen. Cord was double clamped and cut after milking it. The was then passed to the nursery personnel who were in attendance, including Dr. Jackson. The placenta was then bluntly removed. The uterus was then externalized and wiped clean the remaining products. The uterine incision was inspected and found to be extended into the bladder flap on the right and had a laceration on the right uterine artery was was deep down into the bladder flap and initially difficult to reach. The artery was grasped and ligated with a liver [place] stitch with good hemostasis. The uterine incision was closed in layers. The first incision was closed in a locking manner using 0 Vicryl. This was followed by imbricating stitch also with 0 Vicryl. This closure was hemostatic. The bladder flap was copiously irrigated and found to be hemostatic. The pelvis was copiously irrigated and found to be hemostatic. The uterus was then placed back to the patient's abdomen. The retractors were removed. The rectus muscles were inspected and found to be hemostatic. The fascia was then closed in a running manner using 0 Vicryl. This incision was hemostatic irrigation Bovie. The skin was reapproximated with 4-0 Vicryl subcuticularly. The patient tolerated procedure well. Her urine was clear. The was admitted to the intensive care nursery. The patient was accompanied to recovery room in good condition. Instrument count correct 3.
[2017-12-13] MEDS: ANCEF/NS 1 GM/50 ML 1 GM/50 ML BAG IV SCH (19:40)
[2017-12-13 19:42] LABS: Hematocrit 24.9 % (30.3-42.9); Hemoglobin 8.4 gm/dl (10.1-14.3)
[2017-12-13] MEDS: D5LR 1,000 ML IV SCH (21:30)
[2017-12-13] MEDS: FEOSOL PO SCH (22:00)
[2017-12-13] MEDS: BENADRYL IV PRN (22:21)
[2017-12-14 01:02] LABS: Hematocrit 23.1 % (30.3-42.9); Hemoglobin 7.8 gm/dl (10.1-14.3)
[2017-12-14] MEDS ORDERED: ANCEF/NS 1 GM/50 ML 1 GM/50 ML BAG IV SCH (04:00)
[2017-12-14] MEDS: ANCEF/NS 1 GM/50 ML 1 GM/50 ML BAG IV SCH (04:01)
[2017-12-14] MEDS: D5LR 1,000 ML IV SCH ×2 (04:02→23:37)
[2017-12-14 05:28] LABS: Hemoglobin 6.6 gm/dl (10.1-14.3)
[2017-12-14 05:34] LABS: Hematocrit 19.7 % (30.3-42.9)
[2017-12-14] MEDS ORDERED: NACL 0.9% 500 ML 500 ML IV ONE (07:16)
--- NOTE | 2017-12-14 07:28 | Progress Note ---
Assessment and Plan Patient c/o itching. pain well controlled at this time. VSSAF, H&H 6.6/19.7 after 2 units. Dressing dry and intact, mckeon still in place with clear yellow urine, no I&O documented since 2100 last night. ANGELICA Hawthorne called tech and was told the output was 900 from [id number] (adequate hourly output). Additional units of blood ordered already by Dr. Polanco. RN will verify with charge nurse as blood transfusion is not documented as complete. Will order nubain for itching. Continue postop care. - Patient Problems (1) delivery delivered Current Visit: No Status: Chronic (2) Anemia associated with acute blood loss Current Visit: Yes Status: Acute Subjective - Subjective Date of service: 12/14/17 Principal diagnosis: postop day #1 s/p repeat c/s, labor Patient reports: appetite normal, pain well controlled, no dizzy ambulation, no nauseated : Objective - Vital Signs Latest vital signs: Vital Signs Temp Pulse Resp BP BP BP Pulse Ox 12/14/17 04:00 98.4 F 80 16 119/68 12/14/17 00:00 98.6 F 66 18 119/63 18/18 21:30 98.7 F 69 18 99/65 18 20:26 130 H 84/52 18/18 20:11 121 H 87/52 18/18 19:56 126 H 84/51 18/18 19:41 126 H 87/54 18/18 19:33 141 H 99 18/18 19:31 139 H 93 18/18 19:30 99.4 F 16 18/18 19:28 138 H 98 18/18 19:26 126 H 95/52 18/18 19:23 134 H 98 18/18 19:18 136 H 98 18/18 19:13 145 H 98 18/18 19:11 127 H 98/61 18/18 19:08 126 H 98 18/18 19:03 133 H 98 18/18 18:58 129 H 97 12/13/18 18:56 130 H 90/52 12/13/18 18:53 136 H 98 18 18:48 133 H 99 10/18/18 18:43 133 H 98 10/18/18 18:38 128 H 98 10/18/18 18:33 130 H 98 10/18/18 18:28 137 H 88/51 98 10/18/18 17:45 97.4 F L 134 H 20 87/58 99 10/18/18 17:25 98.2 F 138 H 21 89/54 98 10/18/18 16:55 98.3 F 136 H 18 82/58 98 10/18/18 16:40 97.9 F 137 H 19 86/53 98 10/18/18 16:25 98.0 F 135 H 16 97/64 98 10/18/18 16:10 97.6 F 144 H 22 93/62 98 10/18/18 16:05 98.5 F 140 H 24 103/59 98 10/18/18 16:00 97.8 F 142 H 24 109/51 99 10/18/18 15:55 97.9 F 135 H 20 115/51 99 1018/18 13:23 103 H 113/61 1018/18 13:02 115 H 90/52 1018/18 12:17 100 H 100 10/18/18 12:12 92 H 100 1018/18 12:07 102 H 100 1018/18 11:43 98.3 F 1018/18 11:28 89 98 10/18/18 11:23 83 98 10/18/18 11:19 86 97 10/18/18 11:14 102 H 97 1018/18 11:08 91 H 98 10/18/18 11:04 90 98 10/18/18 10:59 90 97 10/18/18 10:54 90 96 10/18/18 10:49 90 97 10/18/18 10:44 105 H 79 L 1018/18 10:43 104 H 98 10/18/18 10:39 90 98 10/18/18 10:34 102 H 98 10/18/18 10:29 100 H 98 10/18/18 10:25 98.2 F 96 H 102/60 10/18/18 10:24 96 H 102/60 98 Intake and Output 10/18/18 10/18/18 10/19/18 15:59 23:59 07:59 Intake Total 3250 350 1116.667 Output Total 200 270 Balance 3050 80 1116.667 Intake: IV 3000 50 816.667 ANCEF/NS 1 GM/50 ML 1 gm 50 In 50 ml @ 100 mls/hr IV Q8H MYLES Rx#:[id number] D5lr 1,000 ml @ 125 mls/ 816.667 hr IV DIRECT MYLES Rx#: [id number] Intake, Free Water 300 300 Blood Product 250 0 Leukoreduced Red Blood 0 Cells Unit [id number] Output: Urine 200 270 Indwelling Catheter 170 Other: Total, Output Amount 25 - Exam Breasts: Present: normal Cardiovascular: Present: Regular rate Lungs: Present: Clear to auscultation, Normal air movement Abdomen: Present: normal appearance, soft Vulva: both: normal Uterus: Present: normal, firm, fundal height at umbilicus Extremities: Present: normal Deep Tendon Reflex Grade: Normal +2 Incision: Present: normal, dry, dressed - Labs Labs: Abnormal lab results 12/13/17 12/13/17 12/13/17 Range/Units 04:57 19:22 23:03 Hgb 8.4 L 7.8 L (10.1-14.3) gm/dl Hct 24.9 L D 23.1 L (30.3-42.9) % Crossmatch See Detail 12/14/17 Range/Units 04:59 Hgb 6.6 L (10.1-14.3) gm/dl Hct 19.7 L* (30.3-42.9) % Crossmatch
[2017-12-14] MEDS ORDERED: NUBAIN IV NR (07:38)
[2017-12-14] MEDS: BENADRYL IV PRN (08:53)
[2017-12-14] MEDS ORDERED: PRENATAL VITAMIN PO SCH (10:00)
[2017-12-14] MEDS: MOTRIN PO PRN ×2 (13:15→22:22)
[2017-12-14] MEDS: NORCO 5/325 PO PRN ×2 (15:26→22:23)
[2017-12-14 19:54] LABS: Hematocrit 23.2 % (30.3-42.9); Hemoglobin 7.8 gm/dl (10.1-14.3)
[2017-12-14] MEDS: FEOSOL PO SCH (21:18)
--- NOTE | 2017-12-15 00:13 | Event Note ---
Date: 12/15/17 informed of h/h/. Will con't to monitor at this time and repeat h/h in am for stability.
[2017-12-15 04:29] LABS: Hematocrit 24.3 % (30.3-42.9); Hemoglobin 8.3 gm/dl (10.1-14.3)
[2017-12-15] MEDS: NORCO 5/325 PO PRN ×3 (08:06→20:29)
--- NOTE | 2017-12-15 08:44 | Progress Note ---
Assessment and Plan - Patient Problems (1) premature rupture of membranes Onset Date: 11/26/17 Current Visit: Yes Status: Resolved Qualifiers: PROM onset of labor timing: unspecified duration between rupture of membranes and onset of labor Qualified Code(s): O42.919 - premature rupture of membranes, unspecified as to length of time between rupture and onset of labor, unspecified trimester (2) Anemia Current Visit: Yes Status: Acute Plan to address problem: -h/h stable after transfusion -vitals are also stable -s/p 4 units of blood -will have po iron therapy (3) History of delivery, currently Current Visit: No Status: Acute (4) S/P repeat low transverse Current Visit: Yes Status: Acute Plan to address problem: -routine post op care -d/c home this pm if pt changes her mind or in the am if remains AFVSS Subjective - Subjective Principal diagnosis: postop day #1 s/p repeat c/s, labor Interval history: Pt doing well. Does not desire d/c home today. No dizziness with ambulation since transfusion. I d/w anemia precautions and importance of po iron therapy. She expressed understanding and questions were addressed and answered. Patient reports: appetite normal, voiding normally, pain well controlled [place]: Objective - Vital Signs Latest vital signs: Vital Signs Temp Pulse Resp BP BP Pulse Ox 12/15/17 05:25 98.7 F 100 H 18 102/62 100 12/14/17 23:10 99.3 F 95 H 20 100/64 95 12/14/17 22:23 18 12/14/17 22:22 18 12/14/17 20:55 98.5 F 95 H 20 97/56 99 12/14/17 17:28 98.0 F 93 H 20 101/60 98 12/14/17 15:00 98.6 F 98 H 102/58 12/14/17 13:30 99 F 100 H 12/14/17 13:00 99 F 12/14/17 12:25 98.3 F 99 H 103/64 12/14/17 12:10 99 F 102 H 20 98/63 12/14/17 11:55 97.8 F 102 H 18 99/52 12/14/17 10:10 98.9 F 100 H 18 88/45 97 Intake and Output 12/14/17 12/15/17 12/15/17 22:59 06:59 14:59 Intake Total 360 100 Output Total 2100 Balance -1740 100 Intake: Intake, Free Water 360 100 Blood Product 0 Leukoreduced Red Blood 0 Cells Unit [id number] Output: Urine 2100 Indwelling Catheter 2100 Other: Total, Output Amount 1400 # Voids Indwelling Catheter 1 - Exam Cardiovascular: Present: Normal S1, Normal S2 Lungs: Present: Clear to auscultation, Normal air movement Abdomen: Present: normal appearance, soft, normal bowel sounds. Absent: distention, tenderness, guarding Uterus: Present: fundal height below umbilicus Extremities: Present: normal. Absent: tenderness, edema Deep Tendon Reflex Grade: Normal +2 Incision: Present: normal, dry, intact (open to air steristrips in place c/d/I) - Labs Labs: Abnormal lab results 12/13/17 12/14/17 12/15/17 Range/Units 04:57 19:26 04:10 Hgb 7.8 L 8.3 L (10.1-14.3) gm/dl Hct 23.2 L 24.3 L (30.3-42.9) % Crossmatch See Detail
[2017-12-15] MEDS: MOTRIN PO PRN ×2 (12:30→20:28)
[2017-12-15] MEDS: ALUM-MAG HYDROX-SIMETH 200-200-20MG/5ML PO PRN (12:30)
[2017-12-15] MEDS: FEOSOL PO SCH ×2 (12:38→23:34)
[2017-12-15] MEDS: COLACE PO SCH (12:38)
--- NOTE | 2017-12-16 10:08 | Discharge Summary ---
Providers - Providers Date of Admission: 11/26/17 23:52 Date of discharge: 12/16/17 Attending physician: ANGELA MERIDA 11/26/17 23:42 Consult to Physician [CONS] Routine Comment: NICU called and spoke with Benjamin; consult called Consulting Provider: BLAKE HERNANDEZ Physician Instructions: PLEASE CALL NICU TO SEE PT Reason For Exam: 25 WKS ; PPROM 11/27/17 00:46 Consult to Physician [CONS] Routine Comment: spoke with Dr. Ayon;she will advise Dr. Hensley Consulting Provider: BEN AMOR Physician Instructions: PLEASE EVALUATE AND GIVE RECOMMENDATIONS Reason For Exam: 25wks/PPROM/2CM DILATED /CL 3.5CM/OLAYINKA 1.96CM Primary care physician: ANGELA MERIDA Hospitalization Reason for admission: IUP - , rupture of membranes Delivery: Procedure: section, repeat low transverse Procedure details: See operative note for details patient did have a right uterine artery laceration complications: transfusion Discharge diagnosis: other ( demise), delivery [place] baby: male Pertinent studies: Several OB ultrasounds/ perinatology consult Hospital course: Please see H&P for details. Patient was admitted on November 26 premature rupture of membranes. Patient had a prolonged hospital stay with serial ultrasounds to evaluate and amniotic fluid status. Patient was consulted on with perinatology. Patient's plan patient was delivered for indications of infection or active labor with the hope reaching 34 weeks gestation and repeat section. The patient's antepartum care she had no fever. At 27 weeks and 4 days patient has spontaneous active labor and reached complete dilatation but was unable to push the infant out probably due to severe pain with pushing this time decision was made to move the section. Patient's section was complicated by thick adhesions from previous sections and laceration of right uterine artery. Loaf Counter present at delivery the was intubated but several hours of delivery due to diagnosis of persistent pulmonary hypertension. Patient had a significant drop in her hematocrit and hemoglobin received 4 units packed red blood cells postoperatively. Patient with expected grief response but no evidence of suicidal or homicidal ideations She was afebrile throughout her postoperative stay. Patient postoperative day 3 hematocrit was 24.3%. Patient had no orthostatic symptoms. Patient was tolerating regular diet and voiding without difficulty at time of discharge. Patient incision was healing well without evidence of infection. Condition at discharge: Good Disposition: DC-01 TO HOME OR SELFCARE - Discharge Diagnoses (1) 26 weeks gestation of Status: Acute (2) premature rupture of membranes Status: Resolved Qualifiers: PROM onset of labor timing: unspecified duration between rupture of membranes and onset of labor Qualified Code(s): O42.919 - premature rupture of membranes, unspecified as to length of time between rupture and onset of labor, unspecified trimester Plan - Discharge Medications Prescriptions: Ferrous Sulfate [Feosol 325 MG tab] 325 mg PO BID #60 tablet Ibuprofen [Motrin 800 MG tab] 800 mg PO Q6H PRN #30 tablet PRN Reason: Pain oxyCODONE /ACETAMINOPHEN [Percocet 5/325 mg] 1 - 2 tab PO Q4H PRN #30 tablet PRN Reason: Pain, Moderate - Provider Discharge Summary Activity: routine, no sex for 6 weeks, no heavy lifting 4 weeks, no strenuous exercise Diet: routine Instructions: routine Additional instructions: [] Smoking cessation referral if applicable(refer to patient education folder for contact #) [] Refer to [facility] Booklet Call your doctor immediately for: * Fever > 100.5 * Heavy vaginal bleeding ( >1 pad per hour) * Severe persistent headache * Shortness of breath * Reddened, hot, painful area to leg or breast * Drainage or odor from incision. * Keep incision clean and dry at all times and follow doctor's instructions regarding bathing/showering - Follow up plan Follow up: ANGELA MERIDA MD [Primary Care Provider] - 7 Days
[2017-12-16 12:17] VITALS: BP 106/71
== END 2017-12-16 12:45 | disposition home or self-care (01) | DRG 786 ==
LOC: TRG 22:16 → OBSVTOIN 23:52 → LD 23:52 → OB 12-13 21:50
PROVIDERS: ADMIT Obstetrics & Gynecology; ATTEND Obstetrics & Gynecology
PROC: 10D00Z1 Extraction of Products of Conception, Low, Open Approach (ICD-10-PCS; principal; 2017-12-13)
PROC: 0DNU0ZZ Release Omentum, Open Approach (ICD-10-PCS; 2017-12-13)
PROC: 0UQ90ZZ Repair Uterus, Open Approach (ICD-10-PCS; 2017-12-13)
PROC: 30233N1 Transfusion of Nonautologous Red Blood Cells into Peripheral Vein, Percutaneous Approach (ICD-10-PCS; 2017-12-13)
DX: O42.012 Preterm premature rupture of membranes, onset of labor within 24 hours of rupture, second trimester (principal); O99.42 Diseases of the circulatory system complicating childbirth; O41.1220 Chorioamnionitis, second trimester, not applicable or unspecified; D62 Acute posthemorrhagic anemia; O99.334 Smoking (tobacco) complicating childbirth; O99.02 Anemia complicating childbirth; O32.1XX0 Maternal care for breech presentation, not applicable or unspecified; O36.5920 Maternal care for other known or suspected poor fetal growth, second trimester, not applicable or unspecified; O99.89 Other specified diseases and conditions complicating pregnancy, childbirth and the puerperium; O99.62 Diseases of the digestive system complicating childbirth; O34.211 Maternal care for low transverse scar from previous cesarean delivery; N73.6 Female pelvic peritoneal adhesions (postinfective); F17.210 Nicotine dependence, cigarettes, uncomplicated; R00.0 Tachycardia, unspecified; Z3A.25 25 weeks gestation of pregnancy; O61.9 Failed induction of labor, unspecified; O71.81 Laceration of uterus, not elsewhere classified; Z37.1 Single stillbirth
CPT/HCPCS: 36415; 76805; 76815; 76816; 76819; 76820; 80053; 81001; 83735; 85014; 85018; 85025; 85027; 86850; 86900; 86901; 86920; 88305; C1765; J0290; J0690; J0702; J1170; J1200; J1885; J2274; J2300; J2370; J2405; J2590; J2765; J3475; J7030; J7040; J7120; J7121; P9016; Q0177